=== PATIENT | male | born 1960 | race Caucasian/White ===

== ENCOUNTER 2025-02-23 08:22 | Outpatient (RCR) | payer MEDICARE, OTHER, SELFPAY ==
[2025-02-23 09:03] VITALS: BP 161/89; PULSE 71; RESP 18
--- NOTE | 2025-02-23 11:59 | HP.PCM_ITS ---
History of Present Illness Date of Service: 02/23/25 Chief Complaint: Follow-up of sacral wound from necrotizing fasciitis. History of Wound: This is a 65-year-old diabetic white male who apparently became extremely ill in October and his took him to the emergency room and he was diagnosed with necrotizing fasciitis of his rectal area. A large portion of the 4 inches deep and 2 to 3 inches wide was excised and everything is healed but on the outside there is still this nonhealing area. Very close to his rectum that is still open depth is very shallow but it is very still open. Patient is not a good diabetic and is not well-controlled we did discuss that that that is part of the problem he has to heal and he needs to get his sugars under control. He does have home health and they are doing wet-to-dry with Daktravis's along with his she is helping a lot and doing the wound care and pr zahira much have closed it down except for this 1 area. He is on aspirin a day. We will obtain cultures today and start wound care. [facility] Home Medications ?Medication ?Instructions ?Recorded ?Last Taken ?Type atorvastatin 40 mg tablet 40 mg PO DAILY 02/23/25 Unkn own History gabapentin 600 mg tablet 600 mg PO TID 02/23/25 Unkno wn History glipizide 5 mg tablet, extended 5 mg PO DAILY 02/23/25 Unknown History release 24 hr insulin glargine 100 unit/mL (3 unit subcut 02/23/25 U nknown History mL) subcutaneous pen (Lantus Solostar U-100 Insulin) metoprolol succinate 50 mg 50 mg PO DAILY 02/23/25 Unk nown History tablet,extended release 24 hr nitrofurantoin 1 cap PO BID 02/23/25 Unknow n History monohydrate/macrocrystals 100 mg capsule omeprazole 20 mg capsule,delayed 20 mg PO BID 02/23/25 Unknown History release terbinafine HCl 250 mg tablet 250 mg PO DAILY 02/23/25 Unknown History triamcinolone acetonide 0.1 % topical BID 02/23/25 Unk nown History topical ointment zolpidem 10 mg tablet 10 mg PO QHS 02/23/25 Unknow n History ROS Constitutional Constitutional: Reports systems reviewed and no addt'l complaints, except as documented Eyes Eyes: Reports systems reviewed and no addt'l complaints, except as documented ENT HEENT: Reports systems reviewed and no addt'l complaints, except as documented Cardiovascular Cardiovascular: Reports systems reviewed and no addt'l complaints, except as documented Respiratory/Chest Respiratory/Chest: Reports systems reviewed and no addt'l complaints, except as documented Gastrointestinal Gastrointestinal: Reports systems reviewed and no addt'l complaints, except as documented Genitourinary Genitourinary: Reports systems reviewed and no addt'l complaints, except as documented Musculoskeletal Musculoskeletal: Reports systems reviewed and no addt'l complaints, except as documented Integumentary Integumentary: Reports other Details: Open wound and sacral perirectal area nonhealing shallow depth Neurologic Neurologic: Reports systems reviewed and no addt'l complaints, except as documented Psychiatric Psychiatric: Reports systems reviewed and no addt'l complaints, except as documented Endocrine Endocrinology: Reports systems reviewed and no addt'l complaints, except as documented Hematologic/Lymphatic Hematologic/Lymphatic: Reports systems reviewed and no addt'l complaints, except as documented Allergic/Immunologic Allergic/Immunologic: Reports systems reviewed and no addt'l complaints, except as documented Vital Signs Vital Signs Vital Signs: 02/23/25 09:03 Pulse Rate 71 Respiratory Rate 18 Blood Pressure 161/89 H Blood Pressure Mean 113 Blood Pressure Source Monitor Blood Pressure Position Sitting Blood Pressure Location Right Arm Oxygen Delivery Method Room Air Physical Exam Const oriented x3 General Appearance: cooperative Exam Limitations: no limitations HEENT normocephalic Nose: external nose normal External Ear: external ears normal Eyes General Eye: normal appearance of both eyes Neck full ROM General: normal visual inspection Resp normal respiratory effort Effort and Inspection: able to speak in complete sentences Auscultation: clear to auscultation bilaterally Cardio regular rate and regular rhythm Palpation: normal PMI Rate: regular rate Rhythm: regular rhythm GI Palpation: soft and no hepatosplenomegaly Back/Spine Cervical Spine: cervical ROM normal Thoracic Spine / Upper Back: normal to inspection Lumbar Spine / Lower Back: normal to inspection Extremity normal to inspection Skin Wounds: wounds noted Wound Narrative: Irregular shaped positive depth wound perirectal area of the sacrum Neuro oriented x3 Psych Appearance: grossly normal Speech: normal speech Thought Content: normal thought content Judgement: judgement good Debridement Note Debridement Note Wound debrided: Sacral wound Type of Debridement: Excisional debridement Anesthesia Used: 5% Lidocaine Gel Depth: in the subcutaneous layer Percentage of wound debrided: 100 Instrument Used: 5mm curette Tissue Removed: Fibrin and some devitalized tissue Severity: Fat Layer Exposed Amount of bleeding with debridement: Mild Bleeding Controlled with: Compression and gauze Patient tolerated procedure: Patient tolerated procedure well Post-Debridement Measurements and Additional Note: Post-Debridement Measurements/Treatment - Nurse 1 - General Ulcer Assessment Start: 02/23/25 09:03 Freq: Status: Active Protocol: BRITTANY Activity Type Activity Date Activity User E-sign Co-sign Detail Recorded Client Recorded Date Recorded By Document 02/23/25 09:03 SC [id number] 02/23/25 09:19 SC 02/23/25 09:03 - Today's Visit Information Type of service Initial Visit Arrival Mode Ambulatory Accompanied by Safety Precautions Fall Prevention Vital Signs Pulse Rate (60-100) 71 Pulse Location Monitor Respiratory Rate (12-18) 18 Respiratory rate source Observation Oxygen Delivery Method Room Air Blood Pressure (90/60-120/80) 161/89 H Blood Pressure Mean 113 Source Monitor Position Sitting Blood Pressure Location Right Arm History Since Last Visit- (Skip if this is Patient's initial visit) Has dressing in place as prescribed Yes Has compression in place as prescribed Yes Has offloadiing in place as prescribed Yes Experienced any changes in pain level or Yes management Left Footwear Regular Shoe Right Footwear Regular Shoe Pain Scale: 0-10 Numeric Is Patient Pain Free? Yes Salvatore Nurse 1 - General Ulcer Measurement Start: 02/23/25 09:03 Freq: Status: Active Protocol: Activity Type Activity Date Activity User E-sign Co-sign Detail Recorded Client Recorded Date Recorded By Document 02/23/25 09:03 SC [id number] 02/23/25 09:19 SC 02/23/25 09:03 Wound Center Nurse 1 #1 Sacrum Cluster -Current Size (cm) - Length 6 -Current Size (cm) - Width 1 -Current Size (cm) - Depth 0.1 -Total Square Cm 6 -Date of Last Picture (Recall this 02/23/25 field) -Photo Taken Yes -Tunneling No -Undermining/Tunneling No -Circular Undermining No -Exudate Amt Medium -Exudate Type Sanguineous -Wound Margin Flat & Intact -Granulation Amt Large (67-100%) -Granulation Quality Pale,Jagual,Red -Necrosis Amt None Present (0 %) -Texture (Casandra-wound Skin Appearance) Assessed -Moisture (Casandra-wound Skin Appearance) Assessed, Maceration -Color (Casandra-wound Skin Appearance) Assessed, Erythema -Temperature (Casandra-wound Skin No Abnormality Appearance) (Pt Warm) -Tenderness on Palpation (Casandra-wound No Skin Appearance) -Ulcer Cleansing Soap and Water -Foul Odor after Cleansing No -Anesthetic Used 5% Lidocaine Gel Lower Limb Edema Present NA - Nurse 2 - General Ulcer CM Notes Start: 02/23/25 09:03 Freq: Status: Active Protocol: Activity Type Activity Date Activity User E-sign Co-sign Detail Recorded Client Recorded Date Recorded By Document 02/23/25 09:29 [facility] [id number] 02/23/25 09:40 [facility] 02/23/25 09:29 Wound Center Nurse 2 #1 Sacrum Cluster -Time 09:30 -Correct Patient Yes -Correct Side, Site, Position Yes -Correct Procedure Yes -Procedure Performed Yes -Type of Procedure Debridement -Clinical Debridement Subcutaneous -Tissue Removed Subcutaneous -Post Debridement (cm) - Length 5 -Post Debridement (cm) - Width 3 -Post Debridement (cm) - Depth 0.3 -Total Square (Post) (cm) 15 -Area of Debridement (cm) - Length 5 -Area of Debridement (cm) - Width 3 -Total Square (Area) (cm) 15 -Tunneling No -Undermining/Tunneling No -Circular Undermining No -Wound/Ulcer Outcome Not Healed -Ulcer Cleansing Rinsed/ Irrigated with Saline -Foul Odor after Cleansing No -Bioengineered Tissue No -Bleeding Controlled with Pressure -Treatment Response Procedure Tolerated Well -Debridement - Subq, 1st 20sq cm Yes Pain Scale: 0-10 Numeric Is Patient Pain Free? Yes - Nurse 3 - General Ulcer D/C NN Start: 02/23/25 09:03 Freq: Status: Active Protocol: Activity Type Activity Date Activity User E-sign Co-sign Detail Recorded Client Recorded Date Recorded By Document 02/23/25 10:00 SC [id number] 02/23/25 10:03 SC 02/23/25 10:00 Wound Care Center Nurse 3 #1 Sacrum Cluster -Ulcer Cleansing Soap and Water -Foul Odor after Cleansing No -Negative Pressure Wound Therapy N/A -Primary Dressing Applied Fibracol Plus 4x4 -Other Dressing gauze, abd pad -Primary Dressing Covered/Secured with Dry Gauze, Secured with Tape -Fibracol Plus 4x4 1 -Wound Comment(s) pt has dakins at home. Pain Scale: 0-10 Numeric Is Patient Pain Free? Yes Assessment/Plan Assessment/Plan (1) Hyperglycemia due to type 2 diabetes mellitus: CODE(S): E11.65 - Type 2 diabetes mellitus with hyperglycemia QUALIFIERS: Diabetes mellitus surgical tech insulin use: with surgical tech use Qualified Code(s): E11.65 - Type 2 diabetes mellitus with hyperglycemia; Z79.4 - electric motor tester (current) use of insulin (2) Nonhealing nonsurgical wound with fat layer exposed: CODE(S): T14.8XXA - Other injury of unspecified body region, initial encounter PLAN: Wash buttocks area with Hibiclens or antibacterial soap and water and apply Fibracol soaked in Dakin's applied to open area and cover with moistened gauze and ABD twice daily. Cultures of wound taken we will call with results. Patient needs to offload meaning he can quit sitting on his buttocks and lay straight out on the couch or lay out in his bed either way cannot sit for more than 45 minutes a day at 15-minute increments. Increase his protein to 60 g/day Follow-up in 1 week
--- NOTE | 2025-02-24 10:53 | WC ---
PHOTO 02/23/25 SACRUM
--- NOTE | 2025-02-25 14:12 | WC ---
called pt to inform him that Ellen was sending in a antibiotic script of Cipro - pt requesting [facility] [place]. Medication was called Cipro 500mg 1tab po BID for 14days. no refills
--- NOTE | 2025-02-28 14:40 | WC ---
Received and order for Metronidazole for this patient by Ellen Terrell NP. Called and spoke to Halley regarding the updated order. Confirmed pharmacy at [facility] in [place] and updated his allergy list on [facility]. Halley was concerned that he could get C-Diff because he had it in the past. I reassured her that she or Calvin will need to stay in contact with us on any symptoms that might persist with C-Diff like diarrhea, stomach cramping/upset of pains in stomach, lack of appetite, fever etc. Patient is scheduled to see Ellen this 03/02/25 at 0845. She verbalized understanding.
== END 2025-02-28 23:59 | disposition home or self-care (01) ==
LOC: WC 08:22
PROVIDERS: PCP Family Medicine; Referring Provider Family Medicine; Visit Provider Nurse Practitioner
DX: L98.412 Non-pressure chronic ulcer of buttock with fat layer exposed (principal); E11.65 Type 2 diabetes mellitus with hyperglycemia; Z79.4 Long term (current) use of insulin; S31.000A Unspecified open wound of lower back and pelvis without penetration into retroperitoneum, initial encounter; X58.XXXA Exposure to other specified factors, initial encounter; Z79.84 Long term (current) use of oral hypoglycemic drugs; Z79.899 Other long term (current) drug therapy; Z87.39 Personal history of other diseases of the musculoskeletal system and connective tissue
CPT/HCPCS: 11042; 87070; 87075; 87077; 87186; 87205; 99203; G0463

== ENCOUNTER 2025-03-30 09:30 | Outpatient (RCR) | payer MEDICARE, OTHER, SELFPAY ==
[2025-03-02 08:47] VITALS: BP 161/76; PULSE 62; RESP 18; TEMP 35.8
--- NOTE | 2025-03-02 10:28 | PN.PCM_ITS ---
History of Present Illness Date of Service: 03/02/25 Chief Complaint: Follow-up of sacral wound from necrotizing fasciitis. History of Wound: This is a 65-year-old diabetic white male who apparently became extremely ill in October and his took him to the emergency room and he was diagnosed with necrotizing fasciitis of his rectal area. A large portion of the 4 inches deep and 2 to 3 inches wide was excised and everything is healed but on the outside there is still this nonhealing area. Very close to his rectum that is still open depth is very shallow but it is very still open. Patient is not a good diabetic and is not well-controlled we did discuss that that that is part of the problem he has to heal and he needs to get his sugars under control. He does have home health and they are doing wet-to-dry with Dakin's along with his she is helping a lot and doing the wound care and pr zahira much have closed it down except for this 1 area. He is on aspirin a day. We will obtain cultures today and start wound care. Progress of Wound: Cultures grew aerobic and anaerobic bugs so patient was started on ciprofloxacin and metronidazole which she just started yesterday. But his 's been doing really well with the dressing changes and the sacral wound is filling in nicely it is much smaller than what it was last week using the Fibracol with Dakin soaked and an ABD dressing and they are doing the dressings twice a day which seems to be working well for healing also. Subjective Subjective Patient and are very happy with outcomes. Patient states he has been wal johny a lot which is good getting him out of bed and offloading his buttocks. Objective Data Objective Data This has been going on since September so he is tired of the wound care I think he is progressing well I think now that he is on antibiotic proper antibiotics he should heal quicker and hopefully within the next month he will heal. Vital Signs: Vital Signs Temp Pulse Resp BP 96.5 F L 62 18 161/76 H 03/02/25 08:47 03/02/25 08:47 03/02/25 08:47 03/02/25 08:47 Lab / Micro Data Attestation: I reviewed the patient's lab results. Physical Exam Const oriented x3 General Appearance: cooperative Exam Limitations: no limitations HEENT normocephalic Nose: external nose normal External Ear: external ears normal Eyes General Eye: normal appearance of both eyes Neck full ROM General: normal visual inspection Resp normal respiratory effort Effort and Inspection: able to speak in complete sentences Auscultation: clear to auscultation bilaterally Cardio regular rate and regular rhythm Palpation: normal PMI Rate: regular rate Rhythm: regular rhythm GI Palpation: soft and no hepatosplenomegaly Back/Spine Cervical Spine: cervical ROM normal Thoracic Spine / Upper Back: normal to inspection Lumbar Spine / Lower Back: normal to inspection Extremity normal to inspection Skin Wounds: wounds noted Wound Narrative: Irregular shaped positive depth wound perirectal area of the sacrum Neuro oriented x3 Psych Appearance: grossly normal Speech: normal speech Thought Content: normal thought content Judgement: judgement good Debridement Note Debridement Note Wound debrided: Sacral wound Type of Debridement: Excisional debridement Anesthesia Used: 5% Lidocaine Gel Depth: in the subcutaneous layer Percentage of wound debrided: 100 Instrument Used: 5mm curette Tissue Removed: Fibrin Severity: Fat Layer Exposed Amount of bleeding with debridement: Mild Bleeding Controlled with: Compression and gauze Patient tolerated procedure: Patient tolerated procedure well Post-Debridement Measurements and Additional Note: Post-Debridement Measurements/Treatment - Nurse 1 - General Ulcer Assessment Start: 03/02/25 08:47 Freq: Status: Active Protocol: BRITTANY Activity Type Activity Date Activity User E-sign Co-sign Detail Recorded Client Recorded Date Recorded By Document 03/02/25 08:47 HILTON [id number] 03/02/25 08:49 RB 03/02/25 08:47 - Today's Visit Information Type of service Follow-up Visit (Physician/ARCHITECT MANAGER ) Arrival Mode Ambulatory, Walker Transfer Assistance None Patient Identification Verified (Name & Yes ) Patient Requires Transmission-Based No Precautions Vital Signs Temperature (97.8 F-99.1 F) 96.5 F L Temperature Source Temporal Pulse Rate (60-100) 62 Pulse Location Monitor Respiratory Rate (12-18) 18 Respiratory rate source Observation Blood Pressure (90/60-120/80) 161/76 H Blood Pressure Mean (mm Hg) 104 Source Monitor Position Semi-Fowlers Blood Pressure Location Left Arm History Since Last Visit- (Skip if this is Patient's initial visit) Have you changed medications since your No last visit? Any new allergies or adverse reactions No Had a fall/change in ADL's that may No increase risk of falls Signs or symptoms of abuse and/or No neglect since last visit Have you been in the hospital since your No last visit? Has dressing in place as prescribed Yes Has compression in place as prescribed N/A Has offloadiing in place as prescribed N/A Experienced any changes in pain level or No management Pain Scale: 0-10 Numeric Is Patient Pain Free? Yes - Nurse 1 - General Ulcer Measurement Start: 03/02/25 08:47 Freq: Status: Active Protocol: Activity Type Activity Date Activity User E-sign Co-sign Detail Recorded Client Recorded Date Recorded By Document 03/02/25 08:47 RB [id number] 03/02/25 08:49 RB 03/02/25 08:47 Wound Center Nurse 1 #1 Sacrum Cluster -Combined with other wound No -Current Size (cm) - Length 1.2 -Current Size (cm) - Width 0.5 -Current Size (cm) - Depth 0.1 -Total Square Cm 0.60 -Photo Taken Yes -Tunneling No -Undermining/Tunneling No -Circular Undermining No -Exudate Amt Medium -Exudate Type Serosanguineous -Wound Margin Distinct, Outline Attached -Granulation Amt Medium (34-66%) -Granulation Quality [place] -Slough/Fibrin Yes -Necrosis Amt Medium (34-66%) -Necrotic Tissue Type Adherent Slough -Structure Exposed N/A -Texture (Casandra-wound Skin Appearance) Assessed, Scarring -Moisture (Casandra-wound Skin Appearance) Assessed -Color (Casandra-wound Skin Appearance) Assessed -Temperature (Casandra-wound Skin No Abnormality Appearance) (Pt Warm) -Tenderness on Palpation (Casandra-wound No Skin Appearance) -Ulcer Cleansing Wound Cleanser -Foul Odor after Cleansing No -Anesthetic Used 5% Lidocaine Gel - Nurse 2 - General Ulcer CM Notes Start: 03/02/25 08:47 Freq: Status: Active Protocol: Activity Type Activity Date Activity User E-sign Co-sign Detail Recorded Client Recorded Date Recorded By Document 03/02/25 08:59 [facility] [id number] 03/02/25 09:03 [facility] 03/02/25 08:59 Wound Center Nurse 2 -Time 08:59 -Correct Patient Yes -Correct Side, Site, Position Yes -Correct Procedure Yes -Procedure Performed Yes -Type of Procedure Debridement -Clinical Debridement Subcutaneous -Tissue Removed Subcutaneous -Post Debridement (cm) - Length 1.5 -Post Debridement (cm) - Width 0.6 -Post Debridement (cm) - Depth 0.2 -Total Square (Post) (cm) 0.90 -Area of Debridement (cm) - Length 1.5 -Area of Debridement (cm) - Width 0.6 -Total Square (Area) (cm) 0.90 -Tunneling No -Undermining/Tunneling No -Circular Undermining No -Wound/Ulcer Outcome Not Healed -Ulcer Cleansing Rinsed/ Irrigated with Saline -Foul Odor after Cleansing No -Bioengineered Tissue No -Bleeding Controlled with Pressure -Treatment Response Procedure Tolerated Well -Debridement - Subq, 1st 20sq cm Yes Pain Scale: 0-10 Numeric Is Patient Pain Free? Yes - Nurse 3 - General Ulcer D/C NN Start: 03/02/25 08:47 Freq: Status: Active Protocol: Activity Type Activity Date Activity User E-sign Co-sign Detail Recorded Client Recorded Date Recorded By Document 03/02/25 09:13 DL [id number] 03/02/25 09:14 DL 03/02/25 09:13 Wound Care Center Nurse 3 #1 Sacrum Cluster -Ulcer Cleansing Rinsed/ Irrigated with Saline -Foul Odor after Cleansing No -Primary Dressing Applied Fibracol Plus 4x4 -Other Dressing dakins -Primary Dressing Covered/Secured with Dry Gauze, Secured with Tape -Other Covering ABD -Fibracol Plus 4x4 1 Treatment Response Procedure Tolerated Well Pain Scale: 0-10 Numeric Is Patient Pain Free? Yes - Visit Discharge Discharge Condition Stable Ambulatory Status Ambulatory Transportation Private Auto Assessment/Plan Assessment/Plan (1) Hyperglycemia due to type 2 diabetes mellitus: CODE(S): E11.65 - Type 2 diabetes mellitus with hyperglycemia QUALIFIERS: Diabetes mellitus parts counterman insulin use: with parts counterman use Qualified Code(s): E11.65 - Type 2 diabetes mellitus with hyperglycemia; Z79.4 - terminal carman (current) use of insulin (2) Nonhealing nonsurgical wound with fat layer exposed: CODE(S): T14.8XXA - Other injury of unspecified body region, initial encounter PLAN: Wash buttocks area with Hibiclens or antibacterial soap and water and apply Fibracol soaked in Dakin's applied to open area and cover with moistened gauze and ABD twice daily. Positive cultures patient was started on metronidazole 250 mg 3 times a day for 14 days and also ciprofloxacin 500 mg twice a day for 14 days patient is tolerating well. Patient needs to offload meaning he can quit sitting on his buttocks and lay straight out on the couch or lay out in his bed either way cannot sit for more than 45 minutes a day at 15-minute increments. Increase his protein to 60 g/day Follow-up in 1 week
--- NOTE | 2025-03-02 15:31 | WC ---
PHOTO 03/02/25
--- NOTE | 2025-03-07 09:10 | WC ---
PHOTO 03/02/25
[2025-03-09 08:36] VITALS: BP 152/109; RESP 18; TEMP 36.1
--- NOTE | 2025-03-09 12:37 | PN.PCM_ITS ---
History of Present Illness Date of Service: 03/09/25 Chief Complaint: Follow-up of sacral wound from necrotizing fasciitis. History of Wound: This is a 65-year-old diabetic white male who apparently became extremely ill in October and his took him to the emergency room and he was diagnosed with necrotizing fasciitis of his rectal area. A large portion of the 4 inches deep and 2 to 3 inches wide was excised and everything is healed but on the outside there is still this nonhealing area. Very close to his rectum that is still open depth is very shallow but it is very still open. Patient is not a good diabetic and is not well-controlled we did discuss that that that is part of the problem he has to heal and he needs to get his sugars under control. He does have home health and they are doing wet-to-dry with Dakin's along with his she is helping a lot and doing the wound care and pr zahira much have closed it down except for this 1 area. He is on aspirin a day. We will obtain cultures today and start wound care. Progress of Wound: The sacral wound is almost healed very small and superficial he still finishing up his 2 antibiotic therapy. They proceeded then to ask us to look at his left heel that has a huge fissure and it and right great toe pad side has an open area where he is taken the top layer skin and now it is just slough on top hard and slough. After debriding and we did another culture on his heel see make sure that he is not growing anything. He has a tendency to wear no socks or shoes he is diabetic and has peripheral neuropathy. So we are going to have him start wearing suit shoes and socks and we will do the dressing changes of Fibracol moistened with the Dakin's and then cover that with gauze and and Fredi daily. He can do that to both areas. Subjective Subjective Patient is very happy with the results of the sacrum and his is very happy about looking at his feet. Objective Data Objective Data The bottoms of his feet are quite hardened and dirty and so where the wounds are hardened it took a lot to get to pare down the skin I had to use a 15 blade just to get through the callus and then used a regular curette to get down into the wounds. Both have positive depth and are both kind of large possible infection in both of them were going to culture them and find out in the meantime they can start doing the dressing changes and use amLactin cream to all the hardened areas other than where the dressings are. Patient continues to offload on his s acrum so it is healing probably another week or so. just informed us that she is having gallbladder surgery next week and she is his seal mixer. Vital Signs: Vital Signs Temp Pulse Resp BP O2 Del Method 96.9 F L 62 18 152/109 H Room Air 03/09/25 08:36 03/02/25 08:47 03/09/25 08:36 03/09/25 08:36 03/09/25 08:36 Oxygen Delivery Method Room Air Physical Exam Const oriented x3 General Appearance: cooperative Exam Limitations: no limitations HEENT normocephalic Nose: external nose normal External Ear: external ears normal Eyes General Eye: normal appearance of both eyes Neck full ROM General: normal visual inspection Resp normal respiratory effort Effort and Inspection: able to speak in complete sentences Auscultation: clear to auscultation bilaterally Cardio regular rate and regular rhythm Palpation: normal PMI Rate: regular rate Rhythm: regular rhythm GI Palpation: soft and no hepatosplenomegaly Back/Spine Cervical Spine: cervical ROM normal Thoracic Spine / Upper Back: normal to inspection Lumbar Spine / Lower Back: normal to inspection Extremity General Extremity: normal exam except as noted and other findings Other Details: Open fissure on the left heel and right great toe pad is open wound Skin Wounds: wounds noted Wound Narrative: Irregular shaped positive depth wound perirectal area of the sacrum Neuro oriented x3 Psych Appearance: grossly normal Speech: normal speech Thought Content: normal thought content Judgement: judgement good Debridement Note Debridement Note Wound debrided: Sacral wound Type of Debridement: Excisional debridement Anesthesia Used: 5% Lidocaine Gel Depth: in the subcutaneous layer Percentage of wound debrided: 100 Instrument Used: 5mm curette Tissue Removed: Fibrin Severity: Fat Layer Exposed Amount of bleeding with debridement: Mild Bleeding Controlled with: Compression and gauze Patient tolerated procedure: Patient tolerated procedure well Post-Debridement Measurements and Additional Note: Post-Debridement Measurements/Treatment TIESHA - Nurse 1 - General Ulcer Assessment Start: 03/02/25 08:47 Freq: Status: Active Protocol: BRITTANY Activity Type Activity Date Activity User E-sign Co-sign Detail Recorded Client Recorded Date Recorded By Document 03/02/25 08:47 RB [id number] 03/02/25 08:49 RB Document 03/09/25 08:36 KW [id number] 03/09/25 08:43 KW 03/02/25 03/09/25 08:47 08:36 - Today's Visit Information Type of service Follow-up Visit Follow-up Visit (Physician/DOPE MAINTENANCE WORKER (Physician/DOPE MAINTENANCE WORKER ) ) Arrival Mode Ambulatory, Ambulatory Walker Transfer Assistance None Accompanied by Patient Identification Verified (Name & Yes Yes ) Patient Requires Transmission-Based No Precautions Vital Signs Temperature (97.8 F-99.1 F) 96.5 F L 96.9 F L Temperature Source Temporal Temporal Pulse Rate (60-100) 62 Pulse Location Monitor Respiratory Rate (12-18) 18 18 Respiratory rate source Observation Observation Oxygen Delivery Method Room Air Blood Pressure (90/60-120/80) 161/76 H 152/109 H Blood Pressure Mean (mm Hg) 104 123 Source Monitor Monitor Position Semi-Fowlers Sitting Blood Pressure Location Left Arm Right Arm History Since Last Visit- (Skip if this is Patient's initial visit) Have you changed medications since your No No last visit? Any new allergies or adverse reactions No No Had a fall/change in ADL's that may No No increase risk of falls Signs or symptoms of abuse and/or No No neglect since last visit Have you been in the hospital since your No No last visit? Has dressing in place as prescribed Yes Yes Has compression in place as prescribed N/A N/A Has offloadiing in place as prescribed N/A N/A Experienced any changes in pain level or No No management Left Footwear Regular Shoe Right Footwear Regular Shoe Pain Scale: 0-10 Numeric Is Patient Pain Free? Yes Yes - Nurse 1 - General Ulcer Measurement Start: 03/02/25 08:47 Freq: Status: Active Protocol: Activity Type Activity Date Activity User E-sign Co-sign Detail Recorded Client Recorded Date Recorded By Document 03/02/25 08:47 RB [id number] 03/02/25 08:49 RB Document 03/09/25 08:36 KW [id number] 03/09/25 08:43 03/02/25 03/09/25 08:47 08:36 Wound Center Nurse 1 #1 Sacrum Cluster -Combined with other wound No -Current Size (cm) - Length 1.2 1.1 -Current Size (cm) - Width 0.5 0.2 -Current Size (cm) - Depth 0.1 0.1 -Total Square Cm 0.60 0.22 -Date of Last Picture (Recall this 03/09/25 field) -Photo Taken Yes -Tunneling No -Undermining/Tunneling No -Circular Undermining No -Exudate Amt Medium -Exudate Type Serosanguineous -Wound Margin Distinct, Outline Attached -Granulation Amt Medium (34-66%) Small (1-33%) -Granulation Quality Benkelman Benkelman,Red -Slough/Fibrin Yes -Necrosis Amt Medium (34-66%) -Necrotic Tissue Type Adherent Slough -Structure Exposed N/A -Texture (Casandra-wound Skin Appearance) Assessed, Assessed Scarring -Moisture (Casandra-wound Skin Appearance) Assessed Assessed, Maceration -Color (Casandra-wound Skin Appearance) Assessed Assessed -Temperature (Casandra-wound Skin No Abnormality No Abnormality Appearance) (Pt Warm) (Pt Warm) -Tenderness on Palpation (Csaandra-wound No No Skin Appearance) -Ulcer Cleansing Wound Cleanser Soap and Water -Foul Odor after Cleansing No No -Anesthetic Used 5% Lidocaine 5% Lidocaine Gel Gel WC - Nurse 2 - General Ulcer CM Notes Start: 03/02/25 08:47 Freq: Status: Active Protocol: Activity Type Activity Date Activity User E-sign Co-sign Detail Recorded Client Recorded Date Recorded By Document 03/02/25 08:[address] [facility] [id number] 03/02/25 09:[address] [facility] Document 03/09/25 08:[address] [facility] [id number] 03/09/25 09:[address] [facility] 03/02/25 03/09/25 08:59 08:47 Wound Center Nurse 2 #3- R GR TOE PLANTAR -Time 09:01 -Correct Patient Yes -Correct Side, Site, Position Yes -Correct Procedure Yes -Procedure Performed Yes -Type of Procedure Debridement -Clinical Debridement Subcutaneous -Tissue Removed Subcutaneous -Post Debridement (cm) - Length 1.5 -Post Debridement (cm) - Width 2 -Post Debridement (cm) - Depth 0.2 -Total Square (Post) (cm) 3.0 -Area of Debridement (cm) - Length 1.5 -Area of Debridement (cm) - Width 2 -Total Square (Area) (cm) 3.0 -Tunneling No -Undermining/Tunneling No -Circular Undermining No -Wound/Ulcer Outcome Not Healed -Ulcer Cleansing Rinsed/ Irrigated with Saline -Foul Odor after Cleansing No -Bioengineered Tissue No -Bleeding Controlled with Pressure -Treatment Response Procedure Tolerated Well -Debridement - Subq, 1st 20sq cm No #2- L Heel Fissure -Time 08:51 -Correct Patient Yes -Correct Side, Site, Position Yes -Correct Procedure Yes -Procedure Performed Yes -Type of Procedure Debridement -Clinical Debridement Muscle / Fascia -Tissue Removed Muscle,Fascia -Post Debridement (cm) - Length 3.9 -Post Debridement (cm) - Width 0.2 -Post Debridement (cm) - Depth 0.4 -Total Square (Post) (cm) 0.78 -Area of Debridement (cm) - Length 3.9 -Area of Debridement (cm) - Width 0.2 -Total Square (Area) (cm) 0.78 -Tunneling No -Undermining/Tunneling No -Circular Undermining No -Wound/Ulcer Outcome Not Healed -Ulcer Cleansing Rinsed/ Irrigated with Saline -Foul Odor after Cleansing No -Bioengineered Tissue No -Bleeding Controlled with Pressure -Treatment Response Procedure Tolerated Well -Debridement - Muscle / Fascia, 1st Yes 20sq cm #1 Sacrum Cluster -Time 08:59 08:47 -Correct Patient Yes Yes -Correct Side, Site, Position Yes Yes -Correct Procedure Yes Yes -Procedure Performed Yes Yes -Type of Procedure Debridement Debridement -Clinical Debridement Subcutaneous Subcutaneous -Tissue Removed Subcutaneous Subcutaneous -Post Debridement (cm) - Length 1.5 1 -Post Debridement (cm) - Width 0.6 0.7 -Post Debridement (cm) - Depth 0.2 0.1 -Total Square (Post) (cm) 0.90 0.7 -Area of Debridement (cm) - Length 1.5 1 -Area of Debridement (cm) - Width 0.6 0.7 -Total Square (Area) (cm) 0.90 0.7 -Tunneling No No -Undermining/Tunneling No No -Circular Undermining No No -Wound/Ulcer Outcome Not Healed Not Healed -Ulcer Cleansing Rinsed/ Rinsed/ Irrigated with Irrigated with Saline Saline -Foul Odor after Cleansing No No -Bioengineered Tissue No No -Bleeding Controlled with Pressure Pressure -Treatment Response Procedure Procedure Tolerated Well Tolerated Well -Debridement - Subq, 1st 20sq cm Yes Yes Pain Scale: 0-10 Numeric Is Patient Pain Free? Yes Yes - Nurse 3 - General Ulcer D/C NN Start: 03/02/25 08:47 Freq: Status: Active Protocol: Activity Type Activity Date Activity User E-sign Co-sign Detail Recorded Client Recorded Date Recorded By Document 03/02/25 09:13 DL [id number] 03/02/25 09:14 DL Document 03/09/25 09:21 DL [id number] 03/09/25 09:23 DL 03/02/25 03/09/25 09:13 09:21 Wound Care Center Nurse 3 #3- R GR TOE PLANTAR -Ulcer Cleansing Soap and Water -Foul Odor after Cleansing No -Primary Dressing Applied Fibracol Plus 4x4 -Other Dressing DAKINS MOISTENED FIBRACOL -Primary Dressing Covered/Secured with Dry Gauze & Roll Gauze, Secured with Tape -Fibracol Plus 4x4 1 #2- L Heel Fissure -Ulcer Cleansing Soap and Water -Foul Odor after Cleansing No -Other Dressing dakins/fibracol -Primary Dressing Covered/Secured with Dry Gauze & Roll Gauze, Secured with Tape #1 Sacrum Cluster -Ulcer Cleansing Rinsed/ Soap and Water Irrigated with Saline -Foul Odor after Cleansing No No -Primary Dressing Applied Fibracol Plus 4x4 -Other Dressing dakins dakins/fibracol -Primary Dressing Covered/Secured with Dry Gauze, Dry Gauze & Secured with Roll Gauze, Tape Secured with Tape -Other Covering ABD -Fibracol Plus 4x4 1 Treatment Response Procedure Procedure Tolerated Well Tolerated Well Pain Scale: 0-10 Numeric Is Patient Pain Free? Yes Yes - Visit Discharge Discharge Condition Stable Stable Ambulatory Status Ambulatory Ambulatory Transportation Private Auto Private Auto Facility Type Home Health Orders Sent Yes Additional Wound Wound debrided: Left heel fissure wound Type of Debridement: Excisional debridement Anesthesia Used: 5% Lidocaine Gel Depth: Down to and including healthy tissue and in the subcutaneous layer Percentage of wound debrided: 100 Instrument Used: 5mm curette, 7mm curette and #15 blade Tissue Removed: Callus fibrin devitalized tissue Severity: Fat Layer Exposed Amount of bleeding with debridement: Mild Bleeding Controlled with: Pressure and Compression and gauze Patient tolerated procedure: Patient tolerated procedure well Additional Wound Wound debrided: Right great toe pad Laterality: Right Type of Debridement: Excisional debridement Anesthesia Used: 5% Lidocaine Gel Depth: Down to and including healthy tissue and in the subcutaneous layer Percentage of wound debrided: 100 Instrument Used: 5mm curette Tissue Removed: Slough and fibrin Severity: Fat Layer Exposed Amount of bleeding with debridement: None Bleeding Controlled with: Compression and gauze Patient tolerated procedure: Patient tolerated procedure well Assessment/Plan Assessment/Plan (1) Hyperglycemia due to type 2 diabetes mellitus: CODE(S): E11.65 - Type 2 diabetes mellitus with hyperglycemia QUALIFIERS: Diabetes mellitus buttermaker continuous churn insulin use: with buttermaker continuous churn use Qualified Code(s): E11.65 - Type 2 diabetes mellitus with hyperglycemia; Z79.4 - senior care (current) use of insulin (2) Nonhealing nonsurgical wound with fat layer exposed: CODE(S): T14.8XXA - Other injury of unspecified body region, initial encounter PLAN: Wash buttocks area with Hibiclens or antibacterial soap and water and apply Fibracol soaked in Dakin's applied to open area and cover with moistened gauze and ABD twice daily. Patient needs to offload meaning he can quit sitting on his buttocks and lay straight out on the couch or lay out in his bed either way cannot sit for more than 45 minutes a day at 15-minute increments. Increase his protein to 60 g/day Follow-up in 1 week (3) Non healing left heel wound: CODE(S): S91.302A - Unspecified open wound, left foot, initial encounter PLAN: Wash left heel and right great toe with antibacterial soap and water pat dry apply the Fibracol moistened with Dakin's covered with moistened gauze and dry gauze and tape 2 times a day follow-up in 1 week Cultures obtained of left heel and we will call patient with results (4) Open wound of right great toe: CODE(S): S91.101A - Unspecified open wound of right great toe without damage to nail, initial encounter QUALIFIERS: Encounter type: initial encounter Qualified Code(s): S91.101A - Unspecified open wound of right great toe without damage to nail, initial encounter
--- NOTE | 2025-03-09 13:51 | WC ---
PHOTO 03/09/25 SACRUM
--- NOTE | 2025-03-09 13:53 | WC ---
PHOTO 03/09/25 SACRUM
--- NOTE | 2025-03-14 15:46 | WC ---
tried calling pt to inform him of script being sent in for positive cultures. unable to leave a VM. Linezolid 600mg was called in to [facility].
[2025-03-16 09:24] VITALS: BP 130/81; PULSE 68; RESP 15; TEMP 36.2
--- NOTE | 2025-03-16 10:36 | PN.PCM_ITS ---
History of Present Illness Date of Service: 03/16/25 Chief Complaint: Follow-up of sacral wound from necrotizing fasciitis. History of Wound: This is a 65-year-old diabetic white male who apparently became extremely ill in October and his took him to the emergency room and he was diagnosed with necrotizing fasciitis of his rectal area. A large portion of the 4 inches deep and 2 to 3 inches wide was excised and everything is healed but on the outside there is still this nonhealing area. Very close to his rectum that is still open depth is very shallow but it is very still open. Patient is not a good diabetic and is not well-controlled we did discuss that that that is part of the problem he has to heal and he needs to get his sugars under control. He does have home health and they are doing wet-to-dry with Dakin's along with his she is helping a lot and doing the wound care and pr zahira much have closed it down except for this 1 area. He is on aspirin a day. We will obtain cultures today and start wound care. Progress of Wound: The sacral wound is slightly bigger this week no more depth but not as good as it has been in the past. They proceeded then to ask us to look at his left heel that has a huge fissure and it and right great toe pad side has an open area where he is taken the top layer skin and now it is just slough on top hard and slough. After debriding and we did another culture on his heel that was positive for like 3 bacteria's that he will start Lenzoid later on for that. He has a tendency to wear no socks or shoes he is diabetic and has peripheral neuropathy. So we are going to have him start wearing socks and shoes . Will do the dressing changes of Fibracol moistened with the Dakin's and then cover that with gauze and and Fredi daily. He can do that to both areas. 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 Objective Data Objective Data The heel even though its got bacteria and it healed the majority of it it still has a slit still open still debriding a lot of callus off the edge of that and the right great toe pad still has a lot of devitalized tissue and a lot of macerated tissue around the perimeter debrided it really well and he is to continue with the Fibracol soaked in Dakin's and then wrapped with gauze and dressing. They will start the antibiotic today. Vital Signs: Vital Signs Temp Pulse Resp BP O2 Del Method 97.1 F L 68 15 130/81 H Room Air 03/16/25 09:24 03/16/25 09:24 03/16/25 09:24 03/16/25 09:24 03/09/25 08:36 Oxygen Delivery Method Room Air Lab / Micro Data Micro: Microbiology 03/09/25 09:00 Wound - Heel, Left Gram Stain - Final 03/09/25 09:00 Wound - Heel, Left Wound Culture - Final Staphylococcus pseudintermediu Staphylococcus haemolyticus Enterococcus faecalis 03/09/25 09:00 Wound - Heel, Left Anaerobic Culture - Final No anaerobic bacteria isolated. Physical Exam Const oriented x3 General Appearance: cooperative Exam Limitations: no limitations HEENT normocephalic Nose: external nose normal External Ear: external ears normal Eyes General Eye: normal appearance of both eyes Neck full ROM General: normal visual inspection Resp normal respiratory effort Effort and Inspection: able to speak in complete sentences Auscultation: clear to auscultation bilaterally Cardio regular rate and regular rhythm Palpation: normal PMI Rate: regular rate Rhythm: regular rhythm GI Palpation: soft and no hepatosplenomegaly Back/Spine Cervical Spine: cervical ROM normal Thoracic Spine / Upper Back: normal to inspection Lumbar Spine / Lower Back: normal to inspection Extremity General Extremity: normal exam except as noted and other findings Other Details: Open fissure on the left heel and right great toe pad is open wound Skin Wounds: wounds noted Wound Narrative: Irregular shaped positive depth wound perirectal area of the sacrum Neuro oriented x3 Psych Appearance: grossly normal Speech: normal speech Thought Content: normal thought content Judgement: judgement good Debridement Note Debridement Note Wound debrided: Sacral wound Type of Debridement: Excisional debridement Anesthesia Used: 5% Lidocaine Gel Depth: in the subcutaneous layer Percentage of wound debrided: 100 Instrument Used: 5mm curette Tissue Removed: Fibrin Severity: Fat Layer Exposed Amount of bleeding with debridement: Mild Bleeding Controlled with: Compression and gauze Patient tolerated procedure: Patient tolerated procedure well Post-Debridement Measurements and Additional Note: Post-Debridement Measurements/Treatment WC - Nurse 1 - General Ulcer Assessment Start: 03/02/25 08:47 Freq: Status: Active Protocol: [email or web address].[email or web address] Activity Type Activity Date Activity User E-sign Co-sign Detail Recorded Client Recorded Date Recorded By Document 03/02/25 08:47 RB [id number] 03/02/25 08:49 RB Document 03/09/25 08:36 KW [id number] 03/09/25 08:43 KW Document 03/16/25 09:24 ML [id number] 03/16/25 09:32 ML 03/02/25 03/09/25 03/16/25 08:47 08:36 09:24 - Today's Visit Information Type of service Follow-up Visit Follow-up Visit Follow-up Visit (Physician/DRAW HAND (Physician/DRAW HAND (Physician/DRAW HAND ) ) ) Arrival Mode Ambulatory, Ambulatory Ambulatory Walker Transfer Assistance None None Accompanied by Patient Identification Verified (Name & Yes Yes Yes ) Patient Requires Transmission-Based No No Precautions Vital Signs Temperature (97.8 F-99.1 F) 96.5 F L 96.9 F L 97.1 F L Temperature Source Temporal Temporal Temporal Pulse Rate (60-100) 62 68 Pulse Location Monitor Monitor Respiratory Rate (12-18) 18 18 15 Respiratory rate source Observation Observation Observation Oxygen Delivery Method Room Air Blood Pressure (90/60-120/80) 161/76 H 152/109 H 130/81 H Blood Pressure Mean (mm Hg) 104 123 97 Source Monitor Monitor Monitor Position Semi-Fowlers Sitting Sitting Blood Pressure Location Left Arm Right Arm Right Arm History Since Last Visit- (Skip if this is Patient's initial visit) Have you changed medications since your No No No last visit? Any new allergies or adverse reactions No No No Had a fall/change in ADL's that may No No No increase risk of falls Signs or symptoms of abuse and/or No No No neglect since last visit Have you been in the hospital since your No No No last visit? Has dressing in place as prescribed Yes Yes Yes Has compression in place as prescribed N/A N/A No Has offloadiing in place as prescribed N/A N/A No Experienced any changes in pain level or No No No management Left Footwear Regular Shoe Right Footwear Regular Shoe Pain Scale: 0-10 Numeric Is Patient Pain Free? Yes Yes Yes - Nurse 1 - General Ulcer Measurement Start: 03/02/25 08:47 Freq: Status: Active Protocol: Activity Type Activity Date Activity User E-sign Co-sign Detail Recorded Client Recorded Date Recorded By Document 03/02/25 08:47 RB [id number] 03/02/25 08:49 RB Document 03/09/25 08:36 KW [id number] 03/09/25 08:43 KW Document 03/16/25 09:24 ML [id number] 03/16/25 09:32 ML 03/02/25 03/09/25 03/16/25 08:47 08:36 09:24 Wound Center Nurse 1 #3- R GR TOE PLANTAR -Current Size (cm) - Length 1.3 -Current Size (cm) - Width 1 -Current Size (cm) - Depth 0.2 -Total Square Cm 1.3 -Exudate Amt Medium -Exudate Type Serosanguineous -Wound Margin Distinct, Outline Attached -Slough/Fibrin Yes -Necrosis Amt Small (1-33%) -Necrotic Tissue Type Adherent Slough -Texture (Casandra-wound Skin Appearance) Assessed -Moisture (Casandra-wound Skin Appearance) Assessed -Color (Casandra-wound Skin Appearance) Assessed -Temperature (Casandra-wound Skin No Abnormality Appearance) (Pt Warm) -Tenderness on Palpation (Casandra-wound No Skin Appearance) -Ulcer Cleansing Soap and Water -Foul Odor after Cleansing No -Anesthetic Used 5% Lidocaine Gel #2- L Heel Fissure -Current Size (cm) - Length 0.1 -Current Size (cm) - Width 0.1 -Current Size (cm) - Depth 0.1 -Total Square Cm 0.01 -Slough/Fibrin No -Necrosis Amt None Present (0 %) -Texture (Casandra-wound Skin Appearance) Assessed -Moisture (Casandra-wound Skin Appearance) Assessed -Color (Casandra-wound Skin Appearance) Assessed -Temperature (Casandra-wound Skin No Abnormality Appearance) (Pt Warm) -Tenderness on Palpation (Casandra-wound No Skin Appearance) -Ulcer Cleansing Soap and Water -Foul Odor after Cleansing No -Anesthetic Used 4% Lidocaine Solution #1 Sacrum Cluster -Combined with other wound No -Current Size (cm) - Length 1.2 1.1 2 -Current Size (cm) - Width 0.5 0.2 0.3 -Current Size (cm) - Depth 0.1 0.1 0.1 -Total Square Cm 0.60 0.22 0.6 -Date of Last Picture (Recall this 03/09/25 field) -Photo Taken Yes -Tunneling No -Undermining/Tunneling No -Circular Undermining No -Exudate Amt Medium Small -Exudate Type Serosanguineous Serosanguineous -Wound Margin Distinct, Distinct, Outline Outline Attached Attached -Granulation Amt Medium (34-66%) Small (1-33%) None Present (0 %) -Granulation Quality Thurman Thurman,Red -Slough/Fibrin Yes Yes -Necrosis Amt Medium (34-66%) Small (1-33%) -Necrotic Tissue Type Adherent Slough Adherent Slough -Structure Exposed N/A -Texture (Casandra-wound Skin Appearance) Assessed, Assessed Assessed Scarring -Moisture (Casandra-wound Skin Appearance) Assessed Assessed, Assessed Maceration -Color (Casandra-wound Skin Appearance) Assessed Assessed Assessed -Temperature (Casandra-wound Skin No Abnormality No Abnormality No Abnormality Appearance) (Pt Warm) (Pt Warm) (Pt Warm) -Tenderness on Palpation (Casandra-wound No No No Skin Appearance) -Ulcer Cleansing Wound Cleanser Soap and Water Rinsed/ Irrigated with Saline -Foul Odor after Cleansing No No No -Anesthetic Used 5% Lidocaine 5% Lidocaine 5% Lidocaine Gel Gel Gel WC - Nurse 2 - General Ulcer CM Notes Start: 03/02/25 08:47 Freq: Status: Active Protocol: Activity Type Activity Date Activity User E-sign Co-sign Detail Recorded Client Recorded Date Recorded By Document 03/02/25 08:59 [facility] [id number] 03/02/25 09:03 [facility] Document 03/09/25 08:47 [facility] [id number] 03/09/25 09:06 [facility] Document 03/16/25 09:49 [facility] [id number] 03/16/25 10:00 [facility] 03/02/25 03/09/25 03/16/25 08:59 08:47 09:49 Wound Center Nurse 2 #3- R GR TOE PLANTAR -Time 09:01 09:54 -Correct Patient Yes Yes -Correct Side, Site, Position Yes Yes -Correct Procedure Yes Yes -Procedure Performed Yes Yes -Type of Procedure Debridement Debridement -Clinical Debridement Subcutaneous Subcutaneous -Tissue Removed Subcutaneous Subcutaneous -Post Debridement (cm) - Length 1.5 1.3 -Post Debridement (cm) - Width 2 1.7 -Post Debridement (cm) - Depth 0.2 0.2 -Total Square (Post) (cm) 3.0 2.21 -Area of Debridement (cm) - Length 1.5 1.3 -Area of Debridement (cm) - Width 2 1.7 -Total Square (Area) (cm) 3.0 2.21 -Tunneling No No -Undermining/Tunneling No No -Circular Undermining No No -Wound/Ulcer Outcome Not Healed Not Healed -Ulcer Cleansing Rinsed/ Rinsed/ Irrigated with Irrigated with Saline Saline -Foul Odor after Cleansing No No -Bioengineered Tissue No No -Bleeding Controlled with Pressure Pressure -Treatment Response Procedure Procedure Tolerated Well Tolerated Well -Debridement - Subq, 1st 20sq cm No Yes #2- L Heel Fissure -Time 08:51 09:51 -Correct Patient Yes Yes -Correct Side, Site, Position Yes Yes -Correct Procedure Yes Yes -Procedure Performed Yes Yes -Type of Procedure Debridement Debridement -Clinical Debridement Muscle / Fascia Subcutaneous -Tissue Removed Muscle,Fascia Subcutaneous -Post Debridement (cm) - Length 3.9 1.5 -Post Debridement (cm) - Width 0.2 0.2 -Post Debridement (cm) - Depth 0.4 0.3 -Total Square (Post) (cm) 0.78 0.30 -Area of Debridement (cm) - Length 3.9 1.5 -Area of Debridement (cm) - Width 0.2 0.2 -Total Square (Area) (cm) 0.78 0.30 -Tunneling No No -Undermining/Tunneling No No -Circular Undermining No No -Wound/Ulcer Outcome Not Healed Not Healed -Ulcer Cleansing Rinsed/ Rinsed/ Irrigated with Irrigated with Saline Saline -Foul Odor after Cleansing No No -Bioengineered Tissue No No -Bleeding Controlled with Pressure Pressure -Treatment Response Procedure Procedure Tolerated Well Tolerated Well -Debridement - Subq, 1st 20sq cm No -Debridement - Muscle / Fascia, 1st Yes 20sq cm #1 Sacrum Cluster -Time 08:59 08:47 09:49 -Correct Patient Yes Yes Yes -Correct Side, Site, Position Yes Yes Yes -Correct Procedure Yes Yes Yes -Procedure Performed Yes Yes Yes -Type of Procedure Debridement Debridement Debridement -Clinical Debridement Subcutaneous Subcutaneous Subcutaneous -Tissue Removed Subcutaneous Subcutaneous Subcutaneous -Post Debridement (cm) - Length 1.5 1 2 -Post Debridement (cm) - Width 0.6 0.7 1.5 -Post Debridement (cm) - Depth 0.2 0.1 0.2 -Total Square (Post) (cm) 0.90 0.7 3.0 -Area of Debridement (cm) - Length 1.5 1 2 -Area of Debridement (cm) - Width 0.6 0.7 1.5 -Total Square (Area) (cm) 0.90 0.7 3.0 -Tunneling No No No -Undermining/Tunneling No No No -Circular Undermining No No No -Wound/Ulcer Outcome Not Healed Not Healed Not Healed -Ulcer Cleansing Rinsed/ Rinsed/ Rinsed/ Irrigated with Irrigated with Irrigated with Saline Saline Saline -Foul Odor after Cleansing No No No -Bioengineered Tissue No No No -Bleeding Controlled with Pressure Pressure Pressure -Treatment Response Procedure Procedure Procedure Tolerated Well Tolerated Well Tolerated Well -Debridement - Subq, 1st 20sq cm Yes Yes No Pain Scale: 0-10 Numeric Is Patient Pain Free? Yes Yes Yes - Nurse 3 - General Ulcer D/C NN Start: 03/02/25 08:47 Freq: Status: Active Protocol: Activity Type Activity Date Activity User E-sign Co-sign Detail Recorded Client Recorded Date Recorded By Document 03/02/25 09:13 DL [id number] 03/02/25 09:14 DL Document 03/09/25 09:21 DL [id number] 03/09/25 09:23 DL Document 03/16/25 10:12 DL [id number] 03/16/25 10:16 DL 03/02/25 03/09/25 03/16/25 09:13 09:21 10:12 Wound Care Center Nurse 3 #3- R GR TOE PLANTAR -Ulcer Cleansing Soap and Water Soap and Water -Foul Odor after Cleansing No No -Primary Dressing Applied Fibracol Plus Fibracol Plus 4x4 4x4,NonAdherent Contact Layer -Other Dressing DAKINS dakins MOISTENED FIBRACOL -Primary Dressing Covered/Secured with Dry Gauze & Dry Gauze, Roll Gauze, Secured with Secured with Tape Tape -Fibracol Plus 4x4 1 1 #2- L Heel Fissure -Ulcer Cleansing Soap and Water Soap and Water -Foul Odor after Cleansing No No -Primary Dressing Applied NonAdherent Contact Layer -Other Dressing dakins/fibracol fibracol/dakins -Primary Dressing Covered/Secured with Dry Gauze & Dry Gauze, Roll Gauze, Secured with Secured with Tape Tape #1 Sacrum Cluster -Ulcer Cleansing Rinsed/ Soap and Water Soap and Water Irrigated with Saline -Foul Odor after Cleansing No No No -Primary Dressing Applied Fibracol Plus 4x4 -Other Dressing dakins dakins/fibracol fibracol/dakins -Primary Dressing Covered/Secured with Dry Gauze, Dry Gauze & Dry Gauze, Secured with Roll Gauze, Secured with Tape Secured with Tape Tape -Other Covering ABD -Fibracol Plus 4x4 1 Treatment Response Procedure Procedure Tolerated Well Tolerated Well Pain Scale: 0-10 Numeric Is Patient Pain Free? Yes Yes Yes WC - Visit Discharge Discharge Condition Stable Stable Stable Ambulatory Status Ambulatory Ambulatory Ambulatory Transportation Private Auto Private Auto Private [facility] Facility Type Home Health Home Health Orders Sent Yes Yes Additional Wound Wound debrided: Left heel fissure wound Type of Debridement: Excisional debridement Anesthesia Used: 5% Lidocaine Gel Depth: Down to and including healthy tissue and in the subcutaneous layer Percentage of wound debrided: 100 Instrument Used: 5mm curette, 7mm curette and #15 blade Tissue Removed: Callus fibrin devitalized tissue Severity: Fat Layer Exposed Amount of bleeding with debridement: Mild Bleeding Controlled with: Pressure and Compression and gauze Patient tolerated procedure: Patient tolerated procedure well Additional Wound Wound debrided: Right great toe pad Laterality: Right Type of Debridement: Excisional debridement Anesthesia Used: 5% Lidocaine Gel Depth: Down to and including healthy tissue and in the subcutaneous layer Percentage of wound debrided: 100 Instrument Used: 5mm curette Tissue Removed: Slough and fibrin Severity: Fat Layer Exposed Amount of bleeding with debridement: None Bleeding Controlled with: Compression and gauze Patient tolerated procedure: Patient tolerated procedure well Assessment/Plan Assessment/Plan (1) Hyperglycemia due to type 2 diabetes mellitus: CODE(S): E11.65 - Type 2 diabetes mellitus with hyperglycemia QUALIFIERS: Diabetes mellitus architectural drafter insulin use: with architectural drafter use Qualified Code(s): E11.65 - Type 2 diabetes mellitus with hyperglycemia; Z79.4 - chili powder mixer (current) use of insulin (2) Nonhealing nonsurgical wound with fat layer exposed: CODE(S): T14.8XXA - Other injury of unspecified body region, initial encounter PLAN: Wash buttocks area with Hibiclens or antibacterial soap and water and apply Fibracol soaked in Dakin's applied to open area and cover with moistened gauze and ABD twice daily. Patient needs to offload meaning he can quit sitting on his buttocks and lay straight out on the couch or lay out in his bed either way cannot sit for more than 45 minutes a day at 15-minute increments. Increase his protein to 60 g/day Follow-up in 1 week (3) Non healing left heel wound: CODE(S): S91.302A - Unspecified open wound, left foot, initial encounter PLAN: Wash left heel and right great toe with antibacterial soap and water pat dry apply the Fibracol moistened with Dakin's covered with moistened gauze and dry gauze and tape 2 times a day follow-up in 1 week Cultures obtained of left heel were positive and patient will be started on li nezolid 600 mg twice daily for 14 days. (4) Open wound of right great toe: CODE(S): S91.101A - Unspecified open wound of right great toe without damage to nail, initial encounter QUALIFIERS: Encounter type: initial encounter Qualified Code(s): S91.101A - Unspecified open wound of right great toe without damage to nail, initial encounter
--- NOTE | 2025-03-16 14:24 | WC ---
PHOTO 03/16/25 SACRAL
--- NOTE | 2025-03-16 14:27 | WC ---
PHOTO 03/16/25 LEFT HEEL
--- NOTE | 2025-03-16 14:32 | WC ---
PHOTO 03/16/25 RIGHT GREAT TOE
[2025-03-23 09:43] VITALS: BP 162/88; PULSE 73; RESP 15; TEMP 36.2
--- NOTE | 2025-03-23 11:01 | PCM.WC.PN ---
History of Present Illness Date of Service: 03/23/25 Chief Complaint: Follow-up of sacral wound from necrotizing fasciitis. History of Wound: This is a 65-year-old diabetic white male who apparently became extremely ill in October and his took him to the emergency room and he was diagnosed with necrotizing fasciitis of his rectal area. A large portion of the 4 inches deep and 2 to 3 inches wide was excised and everything is healed but on the outside there is still this nonhealing area. Very close to his rectum that is still open depth is very shallow but it is very still open. Patient is not a good diabetic and is not well-controlled we did discuss that that that is part of the problem he has to heal and he needs to get his sugars under control. He does have home health and they are doing wet-to-dry with Dakin's along with his she is helping a lot and doing the wound care and pretty much have closed it down except for this 1 area. He is on aspirin a day. We will obtain cultures today and start wound care. Progress of Wound: The sacral wound is almost healed today a small sliver of open area with a lot of macerated tissue we will stop using Adaptic on all of his wounds. His left heel fissure is closed and just needs to be pared down on a regular basis and discussed that with the . It just he gets a lot of callus. The right great toe pad side has an open area with a lot of maceration around it also I think from the Adaptic and that his feet sweat profusely. Continue to debride all of the callus off and debride the wound it is measuring smaller he is doing well with the fibrin call and Dakin soaked dressings to both areas the sacral and to the toe. Patient is finishing up his linezolid for his bacteria in his heel. He is being good about wearing socks and mostly shoes most of the time now rather than walking barefoot around the house. All measurements are smaller in the heel is resolved Subjective Subjective Patient and are very pleased with outcomes Objective Data Objective Data No sign of infection wounds look good healing fast finishing up the linezolid which helped a lot with the sacral wound. Will continue using the soaked Fibracol in Dakin's and dry dressings this time. Vital Signs: Vital Signs Temp Pulse Resp BP O2 Del Method 97.2 F L 73 15 162/88 H Room Air 03/23/25 09:43 03/23/25 09:43 03/23/25 09:43 03/23/25 09:43 03/09/25 08:36 Oxygen Delivery Method Room Air Lab / Micro Data Micro: Microbiology 03/09/25 09:00 Wound - Heel, Left Gram Stain - Final 03/09/25 09:00 Wound - Heel, Left Wound Culture - Final Staphylococcus pseudintermediu Staphylococcus haemolyticus Enterococcus faecalis 03/09/25 09:00 Wound - Heel, Left Anaerobic Culture - Final No anaerobic bacteria isolated. Physical Exam Const oriented x3 General Appearance: cooperative Exam Limitations: no limitations HEENT normocephalic Nose: external nose normal External Ear: external ears normal Eyes General Eye: normal appearance of both eyes Neck full ROM General: normal visual inspection Resp normal respiratory effort Effort and Inspection: able to speak in complete sentences Auscultation: clear to auscultation bilaterally Cardio regular rate and regular rhythm Palpation: normal PMI Rate: regular rate Rhythm: regular rhythm GI Palpation: soft and no hepatosplenomegaly Back/Spine Cervical Spine: cervical ROM normal Thoracic Spine / Upper Back: normal to inspection Lumbar Spine / Lower Back: normal to inspection Extremity General Extremity: normal exam except as noted and other findings Other Details: Open fissure on the left heel and right great toe pad is open wound Skin Wounds: wounds noted Wound Narrative: Irregular shaped positive depth wound perirectal area of the sacrum Neuro oriented x3 Psych Appearance: grossly normal Speech: normal speech Thought Content: normal thought content Judgement: judgement good Debridement Note Debridement Note Wound debrided: Sacral wound Type of Debridement: Excisional debridement Anesthesia Used: 5% Lidocaine Gel Depth: in the subcutaneous layer Percentage of wound debrided: 100 Instrument Used: 5mm curette Tissue Removed: Fibrin Severity: Fat Layer Exposed Amount of bleeding with debridement: Mild Bleeding Controlled with: Compression and gauze Patient tolerated procedure: Patient tolerated procedure well Post-Debridement Measurements and Additional Note: Post-Debridement Measurements/Treatment WC - Nurse 1 - General Ulcer Assessment Start: 03/02/25 08:47 Freq: Status: Active Protocol: BRITTANY Activity Type Activity Date Activity User E-sign Co-sign Detail Recorded Client Recorded Date Recorded By Document 03/02/25 08:47 RB [id number] 03/02/25 08:49 RB Document 03/09/25 08:36 KW [id number] 03/09/25 08:43 KW Document 03/16/25 09:24 ML [id number] 03/16/25 09:32 ML Document 03/23/25 09:43 ML [id number] 03/23/25 09:52 ML 03/02/25 03/09/25 03/16/25 08:47 08:36 09:24 WC - Today's Visit Information Type of service Follow-up Visit Follow-up Visit Follow-up Visit (Physician/SPANISH INTERPRETER (Physician/SPANISH INTERPRETER (Physician/SPANISH INTERPRETER ) ) ) Arrival Mode Ambulatory, Ambulatory Ambulatory Walker Transfer Assistance None None Accompanied by Patient Identification Verified (Name & Yes Yes Yes ) Patient Requires Transmission-Based No No Precautions Vital Signs Temperature (97.8 F-99.1 F) 96.5 F L 96.9 F L 97.1 F L Temperature Source Temporal Temporal Temporal Pulse Rate (60-100) 62 68 Pulse Location Monitor Monitor Respiratory Rate (12-18) 18 18 15 Respiratory rate source Observation Observation Observation Oxygen Delivery Method Room Air Blood Pressure (90/60-120/80) 161/76 H 152/109 H 130/81 H Blood Pressure Mean (mm Hg) 104 123 97 Source Monitor Monitor Monitor Position Semi-Fowlers Sitting Sitting Blood Pressure Location Left Arm Right Arm Right Arm History Since Last Visit- (Skip if this is Patient's initial visit) Have you changed medications since your No No No last visit? Any new allergies or adverse reactions No No No Had a fall/change in ADL's that may No No No increase risk of falls Signs or symptoms of abuse and/or No No No neglect since last visit Have you been in the hospital since your No No No last visit? Has dressing in place as prescribed Yes Yes Yes Has compression in place as prescribed N/A N/A No Has offloadiing in place as prescribed N/A N/A No Experienced any changes in pain level or No No No management Left Footwear Regular Shoe Right Footwear Regular Shoe Pain Scale: 0-10 Numeric Is Patient Pain Free? Yes Yes Yes 03/23/25 09:43 WC - Today's Visit Information Type of service Follow-up Visit (Physician/SPANISH INTERPRETER ) Arrival Mode Ambulatory Transfer Assistance None Accompanied by Patient Identification Verified (Name & Yes ) Patient Requires Transmission-Based No Precautions Vital Signs Temperature (97.8 F-99.1 F) 97.2 F L Temperature Source Temporal Pulse Rate (60-100) 73 Pulse Location Monitor Respiratory Rate (12-18) 15 Respiratory rate source Observation Oxygen Delivery Method Blood Pressure (90/60-120/80) 162/88 H Blood Pressure Mean (mm Hg) 112 Source Monitor Position Sitting Blood Pressure Location Right Arm History Since Last Visit- (Skip if this is Patient's initial visit) Have you changed medications since your No last visit? Any new allergies or adverse reactions No Had a fall/change in ADL's that may No increase risk of falls Signs or symptoms of abuse and/or No neglect since last visit Have you been in the hospital since your last visit? Has dressing in place as prescribed Yes Has compression in place as prescribed N/A Has offloadiing in place as prescribed N/A Experienced any changes in pain level or No management Left Footwear Right Footwear Pain Scale: 0-10 Numeric Is Patient Pain Free? Yes WC - Nurse 1 - General Ulcer Measurement Start: 03/02/25 08:47 Freq: Status: Active Protocol: Activity Type Activity Date Activity User E-sign Co-sign Detail Recorded Client Recorded Date Recorded By Document 03/02/25 08:47 RB [id number] 03/02/25 08:49 RB Document 03/09/25 08:36 KW [id number] 03/09/25 08:43 KW Document 03/16/25 09:24 ML [id number] 03/16/25 09:32 ML Document 03/23/25 09:43 ML [id number] 03/23/25 09:52 ML 03/02/25 03/09/25 03/16/25 08:47 08:36 09:24 Wound Center Nurse 1 #2- L Heel Fissure -Current Size (cm) - Length 0.1 -Current Size (cm) - Width 0.1 -Current Size (cm) - Depth 0.1 -Total Square Cm 0.01 -Exudate Amt -Granulation Amt -Slough/Fibrin No -Necrosis Amt None Present (0 %) -Texture (Casandra-wound Skin Appearance) Assessed -Moisture (Casandra-wound Skin Appearance) Assessed -Color (Casandra-wound Skin Appearance) Assessed -Temperature (Casandra-wound Skin No Abnormality Appearance) (Pt Warm) -Tenderness on Palpation (Casandra-wound No Skin Appearance) -Ulcer Cleansing Soap and Water -Foul Odor after Cleansing No -Anesthetic Used 4% Lidocaine Solution #3- R GR TOE PLANTAR -Current Size (cm) - Length 1.3 -Current Size (cm) - Width 1 -Current Size (cm) - Depth 0.2 -Total Square Cm 1.3 -Exudate Amt Medium -Exudate Type Serosanguineous -Wound Margin Distinct, Outline Attached -Granulation Amt -Slough/Fibrin Yes -Necrosis Amt Small (1-33%) -Necrotic Tissue Type Adherent Slough -Texture (Casandra-wound Skin Appearance) Assessed -Moisture (Casandra-wound Skin Appearance) Assessed -Color (Casandra-wound Skin Appearance) Assessed -Temperature (Casandra-wound Skin No Abnormality Appearance) (Pt Warm) -Tenderness on Palpation (Casandra-wound No Skin Appearance) -Ulcer Cleansing Soap and Water -Foul Odor after Cleansing No -Anesthetic Used 5% Lidocaine Gel #1 Sacrum Cluster -Combined with other wound No -Current Size (cm) - Length 1.2 1.1 2 -Current Size (cm) - Width 0.5 0.2 0.3 -Current Size (cm) - Depth 0.1 0.1 0.1 -Total Square Cm 0.60 0.22 0.6 -Date of Last Picture (Recall this 03/09/25 field) -Photo Taken Yes -Tunneling No -Undermining/Tunneling No -Circular Undermining No -Exudate Amt Medium Small -Exudate Type Serosanguineous Serosanguineous -Wound Margin Distinct, Distinct, Outline Outline Attached Attached -Granulation Amt Medium (34-66%) Small (1-33%) None Present (0 %) -Granulation Quality [place] -Slough/Fibrin Yes Yes -Necrosis Amt Medium (34-66%) Small (1-33%) -Necrotic Tissue Type Adherent Slough Adherent Slough -Structure Exposed N/A -Texture (Casandra-wound Skin Appearance) Assessed, Assessed Assessed Scarring -Moisture (Casandra-wound Skin Appearance) Assessed Assessed, Assessed Maceration -Color (Casandra-wound Skin Appearance) Assessed Assessed Assessed -Temperature (Casandra-wound Skin No Abnormality No Abnormality No Abnormality Appearance) (Pt Warm) (Pt Warm) (Pt Warm) -Tenderness on Palpation (Casandra-wound No No No Skin Appearance) -Ulcer Cleansing Wound Cleanser Soap and Water Rinsed/ Irrigated with Saline -Foul Odor after Cleansing No No No -Anesthetic Used 5% Lidocaine 5% Lidocaine 5% Lidocaine Gel Gel Gel 03/23/25 09:43 Wound Center Nurse 1 #2- L Heel Fissure -Current Size (cm) - Length 0.1 -Current Size (cm) - Width 0.1 -Current Size (cm) - Depth 0.1 -Total Square Cm 0.01 -Exudate Amt None Present -Granulation Amt None Present (0 %) -Slough/Fibrin No -Necrosis Amt None Present (0 %) -Texture (Casandra-wound Skin Appearance) Assessed -Moisture (Casandra-wound Skin Appearance) Assessed,Dry/ Scaly -Color (Casandra-wound Skin Appearance) Assessed -Temperature (Casandra-wound Skin No Abnormality Appearance) (Pt Warm) -Tenderness on Palpation (Casandra-wound No Skin Appearance) -Ulcer Cleansing Rinsed/ Irrigated with Saline -Foul Odor after Cleansing No -Anesthetic Used 5% Lidocaine Gel #3- R GR TOE PLANTAR -Current Size (cm) - Length 1.5 -Current Size (cm) - Width 1.5 -Current Size (cm) - Depth 0.2 -Total Square Cm 2.25 -Exudate Amt Medium -Exudate Type Serosanguineous -Wound Margin Thickened -Granulation Amt Small (1-33%) -Slough/Fibrin Yes -Necrosis Amt Medium (34-66%) -Necrotic Tissue Type Adherent Slough -Texture (Casandra-wound Skin Appearance) Assessed -Moisture (Casandra-wound Skin Appearance) Maceration -Color (Casandra-wound Skin Appearance) Assessed -Temperature (Casandra-wound Skin No Abnormality Appearance) (Pt Warm) -Tenderness on Palpation (Casandra-wound No Skin Appearance) -Ulcer Cleansing Rinsed/ Irrigated with Saline -Foul Odor after Cleansing No -Anesthetic Used 5% Lidocaine Gel #1 Sacrum Cluster -Combined with other wound -Current Size (cm) - Length 0.5 -Current Size (cm) - Width 0.1 -Current Size (cm) - Depth 0.1 -Total Square Cm 0.05 -Date of Last Picture (Recall this field) -Photo Taken -Tunneling -Undermining/Tunneling -Circular Undermining -Exudate Amt Small -Exudate Type Sanguineous -Wound Margin -Granulation Amt -Granulation Quality -Slough/Fibrin Yes -Necrosis Amt Small (1-33%) -Necrotic Tissue Type Adherent Slough -Structure Exposed -Texture (Casandra-wound Skin Appearance) Assessed -Moisture (Casandra-wound Skin Appearance) Assessed -Color (Casandra-wound Skin Appearance) Assessed -Temperature (Casandra-wound Skin No Abnormality Appearance) (Pt Warm) -Tenderness on Palpation (Casandra-wound No Skin Appearance) -Ulcer Cleansing Rinsed/ Irrigated with Saline -Foul Odor after Cleansing No -Anesthetic Used 5% Lidocaine Gel WC - Nurse 2 - General Ulcer CM Notes Start: 03/02/25 08:47 Freq: Status: Active Protocol: Activity Type Activity Date Activity User E-sign Co-sign Detail Recorded Client Recorded Date Recorded By Document 03/02/25 08:59 BMF [id number] 03/02/25 09:03 BMF Document 03/09/25 08:47 BMF [id number] 03/09/25 09:06 BMF Document 03/16/25 09:49 BMF [id number] 03/16/25 10:00 BMF Document 03/23/25 10:26 BMF [id number] 03/23/25 10:35 BMF 03/02/25 03/09/25 03/16/25 08:59 08:47 09:49 Wound Center Nurse 2 #2- L Heel Fissure -Time 08:51 09:51 -Correct Patient Yes Yes -Correct Side, Site, Position Yes Yes -Correct Procedure Yes Yes -Procedure Performed Yes Yes -Type of Procedure Debridement Debridement -Clinical Debridement Muscle / Fascia Subcutaneous -Tissue Removed Muscle,Fascia Subcutaneous -Post Debridement (cm) - Length 3.9 1.5 -Post Debridement (cm) - Width 0.2 0.2 -Post Debridement (cm) - Depth 0.4 0.3 -Total Square (Post) (cm) 0.78 0.30 -Area of Debridement (cm) - Length 3.9 1.5 -Area of Debridement (cm) - Width 0.2 0.2 -Total Square (Area) (cm) 0.78 0.30 -Tunneling No No -Undermining/Tunneling No No -Circular Undermining No No -Wound/Ulcer Outcome Not Healed Not Healed -Ulcer Cleansing Rinsed/ Rinsed/ Irrigated with Irrigated with Saline Saline -Foul Odor after Cleansing No No -Bioengineered Tissue No No -Bleeding Controlled with Pressure Pressure -Treatment Response Procedure Procedure Tolerated Well Tolerated Well -Debridement - Subq, 1st 20sq cm No -Debridement - Muscle / Fascia, 1st Yes 20sq cm #3- R GR TOE PLANTAR -Time 09:01 09:54 -Correct Patient Yes Yes -Correct Side, Site, Position Yes Yes -Correct Procedure Yes Yes -Procedure Performed Yes Yes -Type of Procedure Debridement Debridement -Clinical Debridement Subcutaneous Subcutaneous -Tissue Removed Subcutaneous Subcutaneous -Post Debridement (cm) - Length 1.5 1.3 -Post Debridement (cm) - Width 2 1.7 -Post Debridement (cm) - Depth 0.2 0.2 -Total Square (Post) (cm) 3.0 2.21 -Area of Debridement (cm) - Length 1.5 1.3 -Area of Debridement (cm) - Width 2 1.7 -Total Square (Area) (cm) 3.0 2.21 -Tunneling No No -Undermining/Tunneling No No -Circular Undermining No No -Wound/Ulcer Outcome Not Healed Not Healed -Ulcer Cleansing Rinsed/ Rinsed/ Irrigated with Irrigated with Saline Saline -Foul Odor after Cleansing No No -Bioengineered Tissue No No -Bleeding Controlled with Pressure Pressure -Treatment Response Procedure Procedure Tolerated Well Tolerated Well -Debridement - Subq, 1st 20sq cm No Yes #1 Sacrum Cluster -Time 08:59 08:47 09:49 -Correct Patient Yes Yes Yes -Correct Side, Site, Position Yes Yes Yes -Correct Procedure Yes Yes Yes -Procedure Performed Yes Yes Yes -Type of Procedure Debridement Debridement Debridement -Clinical Debridement Subcutaneous Subcutaneous Subcutaneous -Tissue Removed Subcutaneous Subcutaneous Subcutaneous -Post Debridement (cm) - Length 1.5 1 2 -Post Debridement (cm) - Width 0.6 0.7 1.5 -Post Debridement (cm) - Depth 0.2 0.1 0.2 -Total Square (Post) (cm) 0.90 0.7 3.0 -Area of Debridement (cm) - Length 1.5 1 2 -Area of Debridement (cm) - Width 0.6 0.7 1.5 -Total Square (Area) (cm) 0.90 0.7 3.0 -Tunneling No No No -Undermining/Tunneling No No No -Circular Undermining No No No -Wound/Ulcer Outcome Not Healed Not Healed Not Healed -Ulcer Cleansing Rinsed/ Rinsed/ Rinsed/ Irrigated with Irrigated with Irrigated with Saline Saline Saline -Foul Odor after Cleansing No No No -Bioengineered Tissue No No No -Bleeding Controlled with Pressure Pressure Pressure -Treatment Response Procedure Procedure Procedure Tolerated Well Tolerated Well Tolerated Well -Debridement - Subq, 1st 20sq cm Yes Yes No Pain Scale: 0-10 Numeric Is Patient Pain Free? Yes Yes Yes 03/23/25 10:26 Wound Center Nurse 2 #2- L Heel Fissure -Time 10:27 -Correct Patient -Correct Side, Site, Position -Correct Procedure -Procedure Performed No -Type of Procedure -Clinical Debridement -Tissue Removed -Post Debridement (cm) - Length 0 -Post Debridement (cm) - Width 0 -Post Debridement (cm) - Depth 0 -Total Square (Post) (cm) 0 -Area of Debridement (cm) - Length 0 -Area of Debridement (cm) - Width 0 -Total Square (Area) (cm) 0 -Tunneling -Undermining/Tunneling -Circular Undermining -Wound/Ulcer Outcome Healed- Epithelialized -Ulcer Cleansing -Foul Odor after Cleansing -Bioengineered Tissue -Bleeding Controlled with -Treatment Response -Debridement - Subq, 1st 20sq cm -Debridement - Muscle / Fascia, 1st 20sq cm #3- R GR TOE PLANTAR -Time 10:26 -Correct Patient Yes -Correct Side, Site, Position Yes -Correct Procedure Yes -Procedure Performed Yes -Type of Procedure Debridement -Clinical Debridement Subcutaneous -Tissue Removed Subcutaneous -Post Debridement (cm) - Length 1.3 -Post Debridement (cm) - Width 1.6 -Post Debridement (cm) - Depth 0.2 -Total Square (Post) (cm) 2.08 -Area of Debridement (cm) - Length 1.3 -Area of Debridement (cm) - Width 1.6 -Total Square (Area) (cm) 2.08 -Tunneling No -Undermining/Tunneling No -Circular Undermining No -Wound/Ulcer Outcome Not Healed -Ulcer Cleansing Rinsed/ Irrigated with Saline -Foul Odor after Cleansing No -Bioengineered Tissue No -Bleeding Controlled with Pressure -Treatment Response Procedure Tolerated Well -Debridement - Subq, 1st 20sq cm No #1 Sacrum Cluster -Time 10:26 -Correct Patient Yes -Correct Side, Site, Position Yes -Correct Procedure Yes -Procedure Performed Yes -Type of Procedure Debridement -Clinical Debridement Subcutaneous -Tissue Removed Subcutaneous -Post Debridement (cm) - Length 0.5 -Post Debridement (cm) - Width 0.3 -Post Debridement (cm) - Depth 0.1 -Total Square (Post) (cm) 0.15 -Area of Debridement (cm) - Length 0.5 -Area of Debridement (cm) - Width 0.3 -Total Square (Area) (cm) 0.15 -Tunneling No -Undermining/Tunneling No -Circular Undermining No -Wound/Ulcer Outcome Not Healed -Ulcer Cleansing Rinsed/ Irrigated with Saline -Foul Odor after Cleansing No -Bioengineered Tissue No -Bleeding Controlled with Pressure -Treatment Response Procedure Tolerated Well -Debridement - Subq, 1st 20sq cm Yes Pain Scale: 0-10 Numeric Is Patient Pain Free? Yes WC - Nurse 3 - General Ulcer D/C NN Start: 03/02/25 08:47 Freq: Status: Active Protocol: Activity Type Activity Date Activity User E-sign Co-sign Detail Recorded Client Recorded Date Recorded By Document 03/02/25 09:13 DL [id number] 03/02/25 09:14 DL Document 03/09/25 09:21 DL [id number] 03/09/25 09:23 DL Document 03/16/25 10:12 DL [id number] 03/16/25 10:16 DL Document 03/23/25 10:49 ML [id number] 03/23/25 10:50 ML 03/02/25 03/09/25 03/16/25 09:13 09:21 10:12 Wound Care Center Nurse 3 #2- L Heel Fissure -Ulcer Cleansing Soap and Water Soap and Water -Foul Odor after Cleansing No No -Primary Dressing Applied NonAdherent Contact Layer -Other Dressing dakins/fibracol fibracol/dakins -Primary Dressing Covered/Secured with Dry Gauze & Dry Gauze, Roll Gauze, Secured with Secured with Tape Tape #3- R GR TOE PLANTAR -Ulcer Cleansing Soap and Water Soap and Water -Foul Odor after Cleansing No No -Primary Dressing Applied Fibracol Plus Fibracol Plus 4x4 4x4,NonAdherent Contact Layer -Other Dressing DAKINS dakins MOISTENED FIBRACOL -Primary Dressing Covered/Secured with Dry Gauze & Dry Gauze, Roll Gauze, Secured with Secured with Tape Tape -Fibracol Plus 4x4 1 1 -Hysept #1 Sacrum Cluster -Ulcer Cleansing Rinsed/ Soap and Water Soap and Water Irrigated with Saline -Foul Odor after Cleansing No No No -Primary Dressing Applied Fibracol Plus 4x4 -Other Dressing dakins dakins/fibracol fibracol/dakins -Primary Dressing Covered/Secured with Dry Gauze, Dry Gauze & Dry Gauze, Secured with Roll Gauze, Secured with Tape Secured with Tape Tape -Other Covering ABD -Fibracol Plus 4x4 1 -Hysept Treatment Response Procedure Procedure Tolerated Well Tolerated Well Pain Scale: 0-10 Numeric Is Patient Pain Free? Yes Yes Yes WC - Visit Discharge Discharge Condition Stable Stable Stable Ambulatory Status Ambulatory Ambulatory Ambulatory Transportation Private Auto Private Auto [facility] Facility Type Home Health Home Health Orders Sent Yes Yes 03/23/25 10:49 Wound Care Center Nurse 3 #2- L Heel Fissure -Ulcer Cleansing -Foul Odor after Cleansing -Primary Dressing Applied -Other Dressing -Primary Dressing Covered/Secured with #3- R GR TOE PLANTAR -Ulcer Cleansing Rinsed/ Irrigated with Saline -Foul Odor after Cleansing -Primary Dressing Applied Fibracol Plus 4x4,Hysept -Other Dressing -Primary Dressing Covered/Secured with Dry Gauze, Secured with Tape -Fibracol Plus 4x4 1 -Hysept 1 #1 Sacrum Cluster -Ulcer Cleansing Rinsed/ Irrigated with Saline -Foul Odor after Cleansing No -Primary Dressing Applied Fibracol Plus 4x4,Hysept -Other Dressing -Primary Dressing Covered/Secured with Dry Gauze, Secured with Tape -Other Covering -Fibracol Plus 4x4 0 -Hysept 0 Treatment Response Pain Scale: 0-10 Numeric Is Patient Pain Free? Yes WC - Visit Discharge Discharge Condition Ambulatory Status Transportation Facility Type Orders Sent Additional Wound Tissue Removed: Callus fibrin devitalized tissue Additional Wound Wound debrided: Right great toe pad Laterality: Right Type of Debridement: Excisional debridement Anesthesia Used: 5% Lidocaine Gel Depth: Down to and including healthy tissue and in the subcutaneous layer Percentage of wound debrided: 100 Instrument Used: 7mm curette and - (Nippers) Tissue Removed: Slough and fibrin callus and devitalized tissue Severity: Fat Layer Exposed Amount of bleeding with debridement: None Bleeding Controlled with: Compression and gauze Patient tolerated procedure: Patient tolerated procedure well Assessment/Plan Assessment/Plan (1) Hyperglycemia due to type 2 diabetes mellitus: CODE(S): E11.65 - Type 2 diabetes mellitus with hyperglycemia QUALIFIERS: Diabetes mellitus possum trapper insulin use: with residential use Qualified Code(s): E11.65 - Type 2 diabetes mellitus with hyperglycemia; Z79.4 - skilled nursing (current) use of insulin (2) Nonhealing nonsurgical wound with fat layer exposed: CODE(S): T14.8XXA - Other injury of unspecified body region, initial encounter PLAN: Wash buttocks area with Hibiclens or antibacterial soap and water and apply Fibracol soaked in Dakin's applied to open area and cover with moistened gauze and ABD twice daily. Patient needs to offload meaning he can quit sitting on his buttocks and lay straight out on the couch or lay out in his bed either way cannot sit for more than 45 minutes a day at 15-minute increments. Increase his protein to 60 g/day Follow-up in 1 week (3) Non healing left heel wound: CODE(S): S91.302A - Unspecified open wound, left foot, initial encounter PLAN: Resolved continue paring down callus on heel and applying AmLactin cream to soften. (4) Open wound of right great toe: CODE(S): S91.101A - Unspecified open wound of right great toe without damage to nail, initial encounter QUALIFIERS: Encounter type: initial encounter Qualified Code(s): S91.101A - Unspecified open wound of right great toe without damage to nail, initial encounter (5) Decubitus ulcer of toe, stage 3: CODE(S): L89.893 - Pressure ulcer of other site, stage 3 QUALIFIERS: Laterality: left Qualified Code(s): L89.893 - Pressure ulcer of other site, stage 3
[2025-03-30 09:25] VITALS: BP 147/72; PULSE 98; RESP 18; TEMP 36.6
--- NOTE | 2025-03-30 10:19 | PCM.WC.PN ---
History of Present Illness Date of Service: 03/30/25 Chief Complaint: Follow-up of sacral wound from necrotizing fasciitis. History of Wound: This is a 65-year-old diabetic white male who apparently became extremely ill in October and his took him to the emergency room and he was diagnosed with necrotizing fasciitis of his rectal area. A large portion of the 4 inches deep and 2 to 3 inches wide was excised and everything is healed but on the outside there is still this nonhealing area. Very close to his rectum that is still open depth is very shallow but it is very still open. Patient is not a good diabetic and is not well-controlled we did discuss that that that is part of the problem he has to heal and he needs to get his sugars under control. He does have home health and they are doing wet-to-dry with [facility] along with his she is helping a lot and doing the wound care and pretty much have closed it down except for this 1 area. He is on aspirin a day. We will obtain cultures today and start wound care. Progress of Wound: The sacral wound is healed today . He can start with just a dry dressing for the next week on his sacral area. For padding and protecting. His left heel fissure is closed and just needs to be pared down on a regular basis and discussed that with the . It just he gets a lot of callus. The right great toe pad side has an open area with a lot of maceration around it also I think from the Adaptic and that his feet sweat profusely. Continue to debride all of the callus off and debride the wound it is measuring the same. Patient is finished with linezolid for his bacteria in his heel. He is being good about wearing socks and mostly shoes most of the time now rather than walking barefoot around the house. All measurements are smaller in the heel is resolved Subjective Subjective Patient is pleased with outcomes. He needs to do better job with his heel of paring down the callus and using the AmLactin cream on his skin and is just so dry and it cracks easily. Objective Data Objective Data No sign of infection the sacrum is cleaned and clear and healed just needs to cover it for another week to make sure that the new skin does not breakdown. Left heel is for sure is there but he needs to do better about getting it pared down and using his AmLactin cream to soften the skin he is not doing that. And his right great toe is still about the same measurements we will give it 1 more week using the current treatment of fibrin call with Dakin[facility] but he needs to be more aggressive with that also maybe increase it to twice a day might help. Vital Signs: Vital Signs Temp Pulse Resp BP O2 Del Method 98 F 98 18 147/72 H Room Air 03/30/25 09:25 03/30/25 09:25 03/30/25 09:25 03/30/25 09:25 03/30/25 09:25 Oxygen Delivery Method Room Air Lab / Micro Data Micro: Microbiology 03/09/25 09:00 Wound - Heel, Left Gram Stain - Final 03/09/25 09:00 Wound - Heel, Left Wound Culture - Final Staphylococcus pseudintermediu Staphylococcus haemolyticus Enterococcus faecalis 03/09/25 09:00 Wound - Heel, Left Anaerobic Culture - Final No anaerobic bacteria isolated. Physical Exam Const oriented x3 General Appearance: cooperative Exam Limitations: no limitations HEENT normocephalic Nose: external nose normal External Ear: external ears normal Eyes General Eye: normal appearance of both eyes Neck full ROM General: normal visual inspection Resp normal respiratory effort Effort and Inspection: able to speak in complete sentences Auscultation: clear to auscultation bilaterally Cardio regular rate and regular rhythm Palpation: normal PMI Rate: regular rate Rhythm: regular rhythm GI Palpation: soft and no hepatosplenomegaly Back/Spine Cervical Spine: cervical ROM normal Thoracic Spine / Upper Back: normal to inspection Lumbar Spine / Lower Back: normal to inspection Extremity General Extremity: normal exam except as noted and other findings Other Details: Open fissure on the left heel and right great toe pad is open wound Skin Wounds: wounds noted Wound Narrative: Irregular shaped positive depth wound perirectal area of the sacrum Neuro oriented x3 Psych Appearance: grossly normal Speech: normal speech Thought Content: normal thought content Judgement: judgement good Debridement Note Debridement Note Wound debrided: Right great toe Laterality: Right Wound Grade/Stage: Stage II Type of Debridement: Excisional debridement Anesthesia Used: 5% Lidocaine Gel Depth: in the subcutaneous layer Percentage of wound debrided: 100 Instrument Used: 7mm curette Tissue Removed: Callus macerated tissue and fibrin Severity: Fat Layer Exposed Amount of bleeding with debridement: Mild Bleeding Controlled with: Compression and gauze Patient tolerated procedure: Patient tolerated procedure well Post-Debridement Measurements and Additional Note: Post-Debridement Measurements/Treatment - Nurse 1 - General Ulcer Assessment Start: 03/02/25 08:47 Freq: Status: Active Protocol: BRITTANY Activity Type Activity Date Activity User E-sign Co-sign Detail Recorded Client Recorded Date Recorded By Document 03/02/25 08:47 RB [id number] 03/02/25 08:49 RB Document 03/09/25 08:36 KW [id number] 03/09/25 08:43 KW Document 03/16/25 09:24 ML [id number] 03/16/25 09:32 ML Document 03/23/25 09:43 ML [id number] 03/23/25 09:52 ML Document 03/30/25 09:25 DS [id number] 03/30/25 09:36 DS 03/02/25 03/09/25 03/16/25 08:47 08:36 09:24 - Today's Visit Information Type of service Follow-up Visit Follow-up Visit Follow-up Visit (Physician/ASSESSMENT CONSULTANT (Physician/ASSESSMENT CONSULTANT (Physician/ASSESSMENT CONSULTANT ) ) ) Arrival Mode Ambulatory, Ambulatory Ambulatory Walker Transfer Assistance None None Accompanied by Patient Identification Verified (Name & Yes Yes Yes ) Patient Requires Transmission-Based No No Precautions Safety Precautions Vital Signs Temperature (97.8 F-99.1 F) 96.5 F L 96.9 F L 97.1 F L Temperature Source Temporal Temporal Temporal Pulse Rate (60-100) 62 68 Pulse Location Monitor Monitor Respiratory Rate (12-18) 18 18 15 Respiratory rate source Observation Observation Observation Oxygen Delivery Method Room Air Blood Pressure (90/60-120/80) 161/76 H 152/109 H 130/81 H Blood Pressure Mean (mm Hg) 104 123 97 Source Monitor Monitor Monitor Position Semi-Fowlers Sitting Sitting Blood Pressure Location Left Arm Right Arm Right Arm History Since Last Visit- (Skip if this is Patient's initial visit) Have you changed medications since your No No No last visit? Any new allergies or adverse reactions No No No Had a fall/change in ADL's that may No No No increase risk of falls Signs or symptoms of abuse and/or No No No neglect since last visit Have you been in the hospital since your No No No last visit? Has dressing in place as prescribed Yes Yes Yes Has compression in place as prescribed N/A N/A No Has offloadiing in place as prescribed N/A N/A No Experienced any changes in pain level or No No No management Left Footwear Regular Shoe Right Footwear Regular Shoe Pain Scale: 0-10 Numeric Is Patient Pain Free? Yes Yes Yes 03/23/25 03/30/25 09:43 09:25 - Today's Visit Information Type of service Follow-up Visit Follow-up Visit (Physician/ASSESSMENT CONSULTANT (Physician/ASSESSMENT CONSULTANT ) ) Arrival Mode Ambulatory Ambulatory Transfer Assistance None Accompanied by Patient Identification Verified (Name & Yes Yes ) Patient Requires Transmission-Based No No Precautions Safety Precautions Fall Prevention Vital Signs Temperature (97.8 F-99.1 F) 97.2 F L 98 F Temperature Source Temporal Temporal Pulse Rate (60-100) 73 98 Pulse Location Monitor Monitor Respiratory Rate (12-18) 15 18 Respiratory rate source Observation Monitor Oxygen Delivery Method Room Air Blood Pressure (90/60-120/80) 162/88 H 147/72 H Blood Pressure Mean (mm Hg) 112 97 Source Monitor Monitor Position Sitting Supine Blood Pressure Location Right Arm Right Arm History Since Last Visit- (Skip if this is Patient's initial visit) Have you changed medications since your No No last visit? Any new allergies or adverse reactions No No Had a fall/change in ADL's that may No No increase risk of falls Signs or symptoms of abuse and/or No No neglect since last visit Have you been in the hospital since your No last visit? Has dressing in place as prescribed Yes Yes Has compression in place as prescribed N/A N/A Has offloadiing in place as prescribed N/A N/A Experienced any changes in pain level or No No management Left Footwear Regular Shoe Right Footwear Regular Shoe Pain Scale: 0-10 Numeric Is Patient Pain Free? Yes Yes - Nurse 1 - General Ulcer Measurement Start: 03/02/25 08:47 Freq: Status: Active Protocol: Activity Type Activity Date Activity User E-sign Co-sign Detail Recorded Client Recorded Date Recorded By Document 03/02/25 08:47 RB [id number] 03/02/25 08:49 RB Document 03/09/25 08:36 KW [id number] 03/09/25 08:43 KW Document 03/16/25 09:24 ML [id number] 03/16/25 09:32 ML Document 03/23/25 09:43 ML [id number] 03/23/25 09:52 ML Document 03/30/25 09:25 DS [id number] 03/30/25 09:36 DS 03/02/25 03/09/25 03/16/25 08:47 08:36 09:24 Wound Center Nurse 1 #2- L Heel Fissure -Current Size (cm) - Length 0.1 -Current Size (cm) - Width 0.1 -Current Size (cm) - Depth 0.1 -Total Square Cm 0.01 -Exudate Amt -Granulation Amt -Slough/Fibrin No -Necrosis Amt None Present (0 %) -Texture (Casandra-wound Skin Appearance) Assessed -Moisture (Casandra-wound Skin Appearance) Assessed -Color (Casandra-wound Skin Appearance) Assessed -Temperature (Casandra-wound Skin No Abnormality Appearance) (Pt Warm) -Tenderness on Palpation (Casandra-wound No Skin Appearance) -Ulcer Cleansing Soap and Water -Foul Odor after Cleansing No -Anesthetic Used 4% Lidocaine Solution #1 Sacrum Cluster -Combined with other wound No -Current Size (cm) - Length 1.2 1.1 2 -Current Size (cm) - Width 0.5 0.2 0.3 -Current Size (cm) - Depth 0.1 0.1 0.1 -Total Square Cm 0.60 0.22 0.6 -Date of Last Picture (Recall this 03/09/25 field) -Photo Taken Yes -Tunneling No -Undermining/Tunneling No -Circular Undermining No -Exudate Amt Medium Small -Exudate Type Serosanguineous Serosanguineous -Wound Margin Distinct, Distinct, Outline Outline Attached Attached -Granulation Amt Medium (34-66%) Small (1-33%) None Present (0 %) -Granulation Quality Earl Earl,Red -Slough/Fibrin Yes Yes -Necrosis Amt Medium (34-66%) Small (1-33%) -Necrotic Tissue Type Adherent Slough Adherent Slough -Structure Exposed N/A -Texture (Casandra-wound Skin Appearance) Assessed, Assessed Assessed Scarring -Moisture (Casandra-wound Skin Appearance) Assessed Assessed, Assessed Maceration -Color (Casandra-wound Skin Appearance) Assessed Assessed Assessed -Temperature (Casandra-wound Skin No Abnormality No Abnormality No Abnormality Appearance) (Pt Warm) (Pt Warm) (Pt Warm) -Tenderness on Palpation (Casandra-wound No No No Skin Appearance) -Ulcer Cleansing Wound Cleanser Soap and Water Rinsed/ Irrigated with Saline -Foul Odor after Cleansing No No No -Anesthetic Used 5% Lidocaine 5% Lidocaine 5% Lidocaine Gel Gel Gel #3- R GR TOE PLANTAR -Current Size (cm) - Length 1.3 -Current Size (cm) - Width 1 -Current Size (cm) - Depth 0.2 -Total Square Cm 1.3 -Date of Last Picture (Recall this field) -Photo Taken -Tunneling -Undermining/Tunneling -Circular Undermining -Exudate Amt Medium -Exudate Type Serosanguineous -Wound Margin Distinct, Outline Attached -Granulation Amt -Granulation Quality -Slough/Fibrin Yes -Necrosis Amt Small (1-33%) -Necrotic Tissue Type Adherent Slough -Texture (Casandra-wound Skin Appearance) Assessed -Moisture (Casandar-wound Skin Appearance) Assessed -Color (Casandra-wound Skin Appearance) Assessed -Temperature (Casandra-wound Skin No Abnormality Appearance) (Pt Warm) -Tenderness on Palpation (Casandra-wound No Skin Appearance) -Ulcer Cleansing Soap and Water -Foul Odor after Cleansing No -Anesthetic Used 5% Lidocaine Gel 03/23/25 03/30/25 09:43 09:25 Wound Center Nurse 1 #2- L Heel Fissure -Current Size (cm) - Length 0.1 -Current Size (cm) - Width 0.1 -Current Size (cm) - Depth 0.1 -Total Square Cm 0.01 -Exudate Amt None Present -Granulation Amt None Present (0 %) -Slough/Fibrin No -Necrosis Amt None Present (0 %) -Texture (Casandra-wound Skin Appearance) Assessed -Moisture (Casandra-wound Skin Appearance) Assessed,Dry/ Scaly -Color (Casandra-wound Skin Appearance) Assessed -Temperature (Casandra-wound Skin No Abnormality Appearance) (Pt Warm) -Tenderness on Palpation (Casandra-wound No Skin Appearance) -Ulcer Cleansing Rinsed/ Irrigated with Saline -Foul Odor after Cleansing No -Anesthetic Used 5% Lidocaine Gel #1 Sacrum Cluster -Combined with other wound -Current Size (cm) - Length 0.5 0.1 -Current Size (cm) - Width 0.1 0.1 -Current Size (cm) - Depth 0.1 0.1 -Total Square Cm 0.05 0.01 -Date of Last Picture (Recall this 03/30/25 field) -Photo Taken Yes -Tunneling No -Undermining/Tunneling No -Circular Undermining No -Exudate Amt Small None Present -Exudate Type Sanguineous -Wound Margin Distinct, Outline Attached -Granulation Amt -Granulation Quality -Slough/Fibrin Yes -Necrosis Amt Small (1-33%) -Necrotic Tissue Type Adherent Slough -Structure Exposed -Texture (Casandra-wound Skin Appearance) Assessed Assessed -Moisture (Casandra-wound Skin Appearance) Assessed Assessed -Color (Casandra-wound Skin Appearance) Assessed Assessed -Temperature (Casandra-wound Skin No Abnormality No Abnormality Appearance) (Pt Warm) (Pt Warm) -Tenderness on Palpation (Casandra-wound No No Skin Appearance) -Ulcer Cleansing Rinsed/ Soap and Water Irrigated with Saline -Foul Odor after Cleansing No -Anesthetic Used 5% Lidocaine 5% Lidocaine Gel Gel #3- R GR TOE PLANTAR -Current Size (cm) - Length 1.5 0.9 -Current Size (cm) - Width 1.5 1.4 -Current Size (cm) - Depth 0.2 0.1 -Total Square Cm 2.25 1.26 -Date of Last Picture (Recall this 03/30/25 field) -Photo Taken Yes -Tunneling No -Undermining/Tunneling No -Circular Undermining No -Exudate Amt Medium Small -Exudate Type Serosanguineous Serosanguineous -Wound Margin Thickened -Granulation Amt Small (1-33%) Large (67-100%) -Granulation Quality Red -Slough/Fibrin Yes -Necrosis Amt Medium (34-66%) -Necrotic Tissue Type Adherent Slough -Texture (Casandra-wound Skin Appearance) Assessed Assessed -Moisture (Casandra-wound Skin Appearance) Maceration Assessed, Maceration -Color (Casandra-wound Skin Appearance) Assessed Assessed -Temperature (Casandra-wound Skin No Abnormality No Abnormality Appearance) (Pt Warm) (Pt Warm) -Tenderness on Palpation (Casandra-wound No No Skin Appearance) -Ulcer Cleansing Rinsed/ Soap and Water Irrigated with Saline -Foul Odor after Cleansing No No -Anesthetic Used 5% Lidocaine 5% Lidocaine Gel Gel WC - Nurse 2 - General Ulcer CM Notes Start: 03/02/25 08:47 Freq: Status: Active Protocol: Activity Type Activity Date Activity User E-sign Co-sign Detail Recorded Client Recorded Date Recorded By Document 03/02/25 08:59 BM [id number] 03/02/25 09:03 BM Document 03/09/25 08:47 BM [id number] 03/09/25 09:06 BM Document 03/16/25 09:49 BM [id number] 03/16/25 10:00 BM Document 03/23/25 10:26 BMF [id number] 03/23/25 10:35 BM Document 03/30/25 09:44 BM [id number] 03/30/25 09:50 F 03/02/25 03/09/25 03/16/25 08:59 08:47 09:49 Wound Center Nurse 2 #2- L Heel Fissure -Time 08:51 09:51 -Correct Patient Yes Yes -Correct Side, Site, Position Yes Yes -Correct Procedure Yes Yes -Procedure Performed Yes Yes -Type of Procedure Debridement Debridement -Clinical Debridement Muscle / Fascia Subcutaneous -Tissue Removed Muscle,Fascia Subcutaneous -Post Debridement (cm) - Length 3.9 1.5 -Post Debridement (cm) - Width 0.2 0.2 -Post Debridement (cm) - Depth 0.4 0.3 -Total Square (Post) (cm) 0.78 0.30 -Area of Debridement (cm) - Length 3.9 1.5 -Area of Debridement (cm) - Width 0.2 0.2 -Total Square (Area) (cm) 0.78 0.30 -Tunneling No No -Undermining/Tunneling No No -Circular Undermining No No -Wound/Ulcer Outcome Not Healed Not Healed -Ulcer Cleansing Rinsed/ Rinsed/ Irrigated with Irrigated with Saline Saline -Foul Odor after Cleansing No No -Bioengineered Tissue No No -Bleeding Controlled with Pressure Pressure -Treatment Response Procedure Procedure Tolerated Well Tolerated Well -Debridement - Subq, 1st 20sq cm No -Debridement - Muscle / Fascia, 1st Yes 20sq cm #1 Sacrum Cluster -Time 08:59 08:47 09:49 -Correct Patient Yes Yes Yes -Correct Side, Site, Position Yes Yes Yes -Correct Procedure Yes Yes Yes -Procedure Performed Yes Yes Yes -Type of Procedure Debridement Debridement Debridement -Clinical Debridement Subcutaneous Subcutaneous Subcutaneous -Tissue Removed Subcutaneous Subcutaneous Subcutaneous -Post Debridement (cm) - Length 1.5 1 2 -Post Debridement (cm) - Width 0.6 0.7 1.5 -Post Debridement (cm) - Depth 0.2 0.1 0.2 -Total Square (Post) (cm) 0.90 0.7 3.0 -Area of Debridement (cm) - Length 1.5 1 2 -Area of Debridement (cm) - Width 0.6 0.7 1.5 -Total Square (Area) (cm) 0.90 0.7 3.0 -Tunneling No No No -Undermining/Tunneling No No No -Circular Undermining No No No -Wound/Ulcer Outcome Not Healed Not Healed Not Healed -Ulcer Cleansing Rinsed/ Rinsed/ Rinsed/ Irrigated with Irrigated with Irrigated with Saline Saline Saline -Foul Odor after Cleansing No No No -Bioengineered Tissue No No No -Bleeding Controlled with Pressure Pressure Pressure -Treatment Response Procedure Procedure Procedure Tolerated Well Tolerated Well Tolerated Well -Debridement - Subq, 1st 20sq cm Yes Yes No #3- R GR TOE PLANTAR -Time 09:01 09:54 -Correct Patient Yes Yes -Correct Side, Site, Position Yes Yes -Correct Procedure Yes Yes -Procedure Performed Yes Yes -Type of Procedure Debridement Debridement -Clinical Debridement Subcutaneous Subcutaneous -Tissue Removed Subcutaneous Subcutaneous -Post Debridement (cm) - Length 1.5 1.3 -Post Debridement (cm) - Width 2 1.7 -Post Debridement (cm) - Depth 0.2 0.2 -Total Square (Post) (cm) 3.0 2.21 -Area of Debridement (cm) - Length 1.5 1.3 -Area of Debridement (cm) - Width 2 1.7 -Total Square (Area) (cm) 3.0 2.21 -Tunneling No No -Undermining/Tunneling No No -Circular Undermining No No -Wound/Ulcer Outcome Not Healed Not Healed -Ulcer Cleansing Rinsed/ Rinsed/ Irrigated with Irrigated with Saline Saline -Foul Odor after Cleansing No No -Bioengineered Tissue No No -Bleeding Controlled with Pressure Pressure -Treatment Response Procedure Procedure Tolerated Well Tolerated Well -Debridement - Subq, 1st 20sq cm No Yes Pain Scale: 0-10 Numeric Is Patient Pain Free? Yes Yes Yes 03/23/25 03/30/25 10:26 09:44 Wound Center Nurse 2 #2- L Heel Fissure -Time 10:27 -Correct Patient -Correct Side, Site, Position -Correct Procedure -Procedure Performed No -Type of Procedure -Clinical Debridement -Tissue Removed -Post Debridement (cm) - Length 0 -Post Debridement (cm) - Width 0 -Post Debridement (cm) - Depth 0 -Total Square (Post) (cm) 0 -Area of Debridement (cm) - Length 0 -Area of Debridement (cm) - Width 0 -Total Square (Area) (cm) 0 -Tunneling -Undermining/Tunneling -Circular Undermining -Wound/Ulcer Outcome Healed- Epithelialized -Ulcer Cleansing -Foul Odor after Cleansing -Bioengineered Tissue -Bleeding Controlled with -Treatment Response -Debridement - Subq, 1st 20sq cm -Debridement - Muscle / Fascia, 1st 20sq cm #1 Sacrum Cluster -Time 10: 09:45 -Correct Patient Yes -Correct Side, Site, Position Yes -Correct Procedure Yes -Procedure Performed Yes -Type of Procedure Debridement -Clinical Debridement Subcutaneous -Tissue Removed Subcutaneous -Post Debridement (cm) - Length 0.5 0 -Post Debridement (cm) - Width 0.3 0 -Post Debridement (cm) - Depth 0.1 0 -Total Square (Post) (cm) 0.15 0 -Area of Debridement (cm) - Length 0.5 0 -Area of Debridement (cm) - Width 0.3 0 -Total Square (Area) (cm) 0.15 0 -Tunneling No No -Undermining/Tunneling No No -Circular Undermining No No -Wound/Ulcer Outcome Not Healed Healed- Epithelialized -Ulcer Cleansing Rinsed/ Irrigated with Saline -Foul Odor after Cleansing No -Bioengineered Tissue No -Bleeding Controlled with Pressure -Treatment Response Procedure Tolerated Well -Debridement - Subq, 1st 20sq cm Yes #3- R GR TOE PLANTAR -Time 10: 09:45 -Correct Patient Yes Yes -Correct Side, Site, Position Yes Yes -Correct Procedure Yes Yes -Procedure Performed Yes Yes -Type of Procedure Debridement Debridement -Clinical Debridement Subcutaneous Subcutaneous -Tissue Removed Subcutaneous Subcutaneous -Post Debridement (cm) - Length 1.3 1 -Post Debridement (cm) - Width 1.6 1.5 -Post Debridement (cm) - Depth 0.2 0.2 -Total Square (Post) (cm) 2.08 1.5 -Area of Debridement (cm) - Length 1.3 1 -Area of Debridement (cm) - Width 1.6 1.5 -Total Square (Area) (cm) 2.08 1.5 -Tunneling No No -Undermining/Tunneling No No -Circular Undermining No No -Wound/Ulcer Outcome Not Healed Not Healed -Ulcer Cleansing Rinsed/ Rinsed/ Irrigated with Irrigated with Saline Saline -Foul Odor after Cleansing No No -Bioengineered Tissue No No -Bleeding Controlled with Pressure Pressure -Treatment Response Procedure Procedure Tolerated Well Tolerated Well -Debridement - Subq, 1st 20sq cm No Yes Pain Scale: 0-10 Numeric Is Patient Pain Free? Yes Yes WC - Nurse 3 - General Ulcer D/C NN Start: 03/02/25 08:47 Freq: Status: Active Protocol: Activity Type Activity Date Activity User E-sign Co-sign Detail Recorded Client Recorded Date Recorded By Document 03/02/25 09:13 DL [id number] 03/02/25 09:14 DL Document 03/09/25 09:21 DL [id number] 03/09/25 09:23 DL Document 03/16/25 10:12 DL [id number] 03/16/25 10:16 DL Document 03/23/25 10:49 ML [id number] 03/23/25 10:50 ML Document 03/30/25 10:01 BMF [id number] 03/30/25 10:02 BMF Edit Result 03/30/25 10:01 BMF (1) [id number] 03/30/25 10:11 BMF (1) #3- R GR TOE PLANTAR - Other Dressing => moist w/ dakins 03/02/25 03/09/25 03/16/25 09:13 09:21 10:12 Wound Care Center Nurse 3 #2- L Heel Fissure -Ulcer Cleansing Soap and Water Soap and Water -Foul Odor after Cleansing No No -Primary Dressing Applied NonAdherent Contact Layer -Other Dressing dakins/fibracol fibracol/dakins -Primary Dressing Covered/Secured with Dry Gauze & Dry Gauze, Roll Gauze, Secured with Secured with Tape Tape #1 Sacrum Cluster -Ulcer Cleansing Rinsed/ Soap and Water Soap and Water Irrigated with Saline -Foul Odor after Cleansing No No No -Primary Dressing Applied Fibracol Plus 4x4 -Other Dressing dakins dakins/fibracol fibracol/dakins -Primary Dressing Covered/Secured with Dry Gauze, Dry Gauze & Dry Gauze, Secured with Roll Gauze, Secured with Tape Secured with Tape Tape -Other Covering ABD -Fibracol Plus 4x4 1 -Hysept #3- R GR TOE PLANTAR -Ulcer Cleansing Soap and Water Soap and Water -Foul Odor after Cleansing No No -Primary Dressing Applied Fibracol Plus Fibracol Plus 4x4 4x4,NonAdherent Contact Layer -Other Dressing DAKINS dakins MOISTENED FIBRACOL -Primary Dressing Covered/Secured with Dry Gauze & Dry Gauze, Roll Gauze, Secured with Secured with Tape Tape -Fibracol Plus 4x4 1 1 -Hysept Treatment Response Procedure Procedure Tolerated Well Tolerated Well Pain Scale: 0-10 Numeric Is Patient Pain Free? Yes Yes Yes WC - Visit Discharge Discharge Condition Stable Stable Stable Ambulatory Status Ambulatory Ambulatory Ambulatory Transportation Private Auto Private Auto Private Auto Accompanied by Facility Type Home Health Home Health Orders Sent Yes Yes 03/23/25 03/30/25 10:49 10:01 Wound Care Center Nurse 3 #2- L Heel Fissure -Ulcer Cleansing -Foul Odor after Cleansing -Primary Dressing Applied -Other Dressing -Primary Dressing Covered/Secured with #1 Sacrum Cluster -Ulcer Cleansing Rinsed/ Irrigated with Saline -Foul Odor after Cleansing No -Primary Dressing Applied Fibracol Plus 4x4,Hysept -Other Dressing -Primary Dressing Covered/Secured with Dry Gauze, Secured with Tape -Other Covering -Fibracol Plus 4x4 0 -Hysept 0 #3- R GR TOE PLANTAR -Ulcer Cleansing Rinsed/ Rinsed/ Irrigated with Irrigated with Saline Saline -Foul Odor after Cleansing No -Primary Dressing Applied Fibracol Plus Fibracol Plus 4x4,Hysept 4x4 -Other Dressing moist w/ dakins -Primary Dressing Covered/Secured with Dry Gauze, Dry Gauze, Secured with Secured with Tape Tape -Fibracol Plus 4x4 1 1 -Hysept 1 Treatment Response Procedure Tolerated Well Pain Scale: 0-10 Numeric Is Patient Pain Free? 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 (4) Open wound of right great toe: CODE(S): S91.101A - Unspecified open wound of right great toe without damage to nail, initial encounter QUALIFIERS: Encounter type: initial encounter Qualified Code(s): S91.101A - Unspecified open wound of right great toe without damage to nail, initial encounter PLAN: Wash right great toe with antibacterial soap and water and apply the Aquacel extra to the wound base moistened with Dakin's cover with dry gauze Follow-up in 1 week these are daily dressings (5) Decubitus ulcer of toe, stage 3: CODE(S): L89.893 - Pressure ulcer of other site, stage 3 QUALIFIERS: Laterality: left Qualified Code(s): L89.893 - Pressure ulcer of other site, stage 3
--- NOTE | 2025-03-31 09:27 | WC ---
PHOTO-RIGHT GREAT TOE 03/30/25
--- NOTE | 2025-03-31 09:32 | WC ---
PHOTO-SACRUM 03/30/25
--- NOTE | 2025-03-31 09:43 | WC ---
PHOTO-SACRUM 03/30/25
== END 2025-03-31 23:59 | disposition home or self-care (01) ==
LOC: WC 09:30
PROVIDERS: PCP Family Medicine; Referring Provider Family Medicine; Visit Provider Nurse Practitioner
DX: S31.000A Unspecified open wound of lower back and pelvis without penetration into retroperitoneum, initial encounter (principal); L89.893 Pressure ulcer of other site, stage 3; E11.65 Type 2 diabetes mellitus with hyperglycemia; Z79.4 Long term (current) use of insulin; E11.42 Type 2 diabetes mellitus with diabetic polyneuropathy; S91.302A Unspecified open wound, left foot, initial encounter; X58.XXXA Exposure to other specified factors, initial encounter; Z79.84 Long term (current) use of oral hypoglycemic drugs; Z79.899 Other long term (current) drug therapy; Z87.39 Personal history of other diseases of the musculoskeletal system and connective tissue
CPT/HCPCS: 11042; 11043; 87070; 87075; 87077; 87186; 87205

== ENCOUNTER 2025-04-27 09:45 | Outpatient (RCR) | payer MEDICARE, OTHER, SELFPAY ==
[2025-04-06 09:34] VITALS: BP 144/83; PULSE 74; RESP 18; TEMP 36.4
--- NOTE | 2025-04-06 11:12 | PN.PCM_ITS ---
History of Present Illness Date of Service: 04/06/25 Chief Complaint: Follow-up of sacral wound from necrotizing fasciitis. History of Wound: This is a 65-year-old diabetic white male who apparently became extremely ill in October and his took him to the emergency room and he was diagnosed with necrotizing fasciitis of his rectal area. A large portion of the 4 inches deep and 2 to 3 inches wide was excised and everything is healed but on the outside there is still this nonhealing area. Very close to his rectum that is still open depth is very shallow but it is very still open. Patient is not a good diabetic and is not well-controlled we did discuss that that that is part of the problem he has to heal and he needs to get his sugars under control. He does have home health and they are doing wet-to-dry with Dakin's along with his she is helping a lot and doing the wound care and pr zahira much have closed it down except for this 1 area. He is on aspirin a day. We will obtain cultures today and start wound care. Progress of Wound: The sacrum is healed now are just healing about the right great toe and it is improving. No sign of infection no increase in redness surrounding tissue looks flesh colored looks good measuring smaller shallow not as callus around the edge they are doing better about offloading and moisturizing his skin. Subjective Subjective Patient is pleased with outcomes Objective Data Objective Data Will continue using the Fibracol soaked in Dakin's on the great toe amLactin cream to all the heels and surrounding tissue and his sacrum . Vital Signs: Vital Signs Temp Pulse Resp BP 97.5 F L 74 18 144/83 H 04/06/25 09:34 04/06/25 09:34 04/06/25 09:34 04/06/25 09:34 Physical Exam Const oriented x3 General Appearance: cooperative Exam Limitations: no limitations HEENT normocephalic Nose: external nose normal External Ear: external ears normal Eyes General Eye: normal appearance of both eyes Neck full ROM General: normal visual inspection Resp normal respiratory effort Effort and Inspection: able to speak in complete sentences Auscultation: clear to auscultation bilaterally Cardio regular rate and regular rhythm Palpation: normal PMI Rate: regular rate Rhythm: regular rhythm GI Palpation: soft and no hepatosplenomegaly Back/Spine Cervical Spine: cervical ROM normal Thoracic Spine / Upper Back: normal to inspection Lumbar Spine / Lower Back: normal to inspection Extremity General Extremity: normal exam except as noted and other findings Other Details: Open fissure on the left heel and right great toe pad is open wound Skin Wounds: wounds noted Wound Narrative: Irregular shaped positive depth wound perirectal area of the sacrum Neuro oriented x3 Psych Appearance: grossly normal Speech: normal speech Thought Content: normal thought content Judgement: judgement good Debridement Note Debridement Note Wound debrided: Right great toe Laterality: Right Wound Grade/Stage: Stage 3 Type of Debridement: Excisional debridement Anesthesia Used: 5% Lidocaine Gel Depth: in the subcutaneous layer Percentage of wound debrided: 100 Instrument Used: 5mm curette Tissue Removed: Callus macerated tissue and fibrin Severity: Fat Layer Exposed Bleeding Controlled with: Compression and gauze Patient tolerated procedure: Patient tolerated procedure well Post-Debridement Measurements and Additional Note: Post-Debridement Measurements/Treatment - Nurse 1 - General Ulcer Assessment Start: 04/06/25 09:33 Freq: Status: Active Protocol: BRITTANY Activity Type Activity Date Activity User E-sign Co-sign Detail Recorded Client Recorded Date Recorded By Document 04/06/25 09:34 [id number] 04/06/25 09:36 HILTON 04/06/25 09:34 - Today's Visit Information Type of service Follow-up Visit (Physician/CIGARETTE VENDOR ) Arrival Mode Ambulatory Transfer Assistance Manual Patient Identification Verified (Name & Yes ) Patient Requires Transmission-Based No Precautions Vital Signs Temperature (97.8 F-99.1 F) 97.5 F L Temperature Source Temporal Pulse Rate (60-100) 74 Pulse Location Monitor Respiratory Rate (12-18) 18 Respiratory rate source Observation Blood Pressure (90/60-120/80) 144/83 H Blood Pressure Mean (mm Hg) 103 Source Monitor Position Semi-Fowlers Blood Pressure Location Left Arm History Since Last Visit- (Skip if this is Patient's initial visit) Have you changed medications since your No last visit? Any new allergies or adverse reactions No Had a fall/change in ADL's that may No increase risk of falls Signs or symptoms of abuse and/or No neglect since last visit Have you been in the hospital since your No last visit? Has dressing in place as prescribed Yes Has compression in place as prescribed N/A Has offloadiing in place as prescribed Yes Experienced any changes in pain level or No management Pain Scale: 0-10 Numeric Is Patient Pain Free? Yes WC - Nurse 1 - General Ulcer Measurement Start: 04/06/25 09:33 Freq: Status: Active Protocol: Activity Type Activity Date Activity User E-sign Co-sign Detail Recorded Client Recorded Date Recorded By Document 04/06/25 09:34 RB [id number] 04/06/25 09:36 RB 04/06/25 09:34 Wound Center Nurse 1 #3- R GR TOE PLANTAR -Combined with other wound No -Current Size (cm) - Length 1 -Current Size (cm) - Width 1 -Current Size (cm) - Depth 0.1 -Total Square Cm 1 -Photo Taken Yes -Tunneling No -Undermining/Tunneling No -Circular Undermining No -Exudate Amt Medium -Exudate Type Serosanguineous -Wound Margin Fibrotic Scar, Thickened Scar -Granulation Amt Medium (34-66%) -Granulation Quality [place] -Slough/Fibrin Yes -Necrosis Amt Small (1-33%) -Necrotic Tissue Type Adherent Slough -Structure Exposed N/A -Texture (Casandra-wound Skin Appearance) Assessed,Callus -Moisture (Casandra-wound Skin Appearance) Assessed -Color (Casandra-wound Skin Appearance) Assessed -Temperature (Casandra-wound Skin No Abnormality Appearance) (Pt Warm) -Tenderness on Palpation (Casandra-wound No Skin Appearance) -Ulcer Cleansing Wound Cleanser -Foul Odor after Cleansing No -Anesthetic Used 5% Lidocaine Gel WC - Nurse 2 - General Ulcer CM Notes Start: 04/06/25 09:33 Freq: Status: Active Protocol: Activity Type Activity Date Activity User E-sign Co-sign Detail Recorded Client Recorded Date Recorded By Document 04/06/25 09:44 DS [id number] 04/06/25 09:47 DS 04/06/25 09:44 Wound Center Nurse 2 -Time 09:44 -Correct Patient Yes -Correct Side, Site, Position Yes -Correct Procedure Yes -Procedure Performed Yes -Type of Procedure Debridement -Clinical Debridement Subcutaneous -Tissue Removed Subcutaneous -Post Debridement (cm) - Length 1.5 -Post Debridement (cm) - Width 1.3 -Post Debridement (cm) - Depth 0.2 -Total Square (Post) (cm) 1.95 -Area of Debridement (cm) - Length 1.5 -Area of Debridement (cm) - Width 1.3 -Total Square (Area) (cm) 1.95 -Tunneling No -Undermining/Tunneling No -Circular Undermining No -Wound/Ulcer Outcome Not Healed -Ulcer Cleansing Rinsed/ Irrigated with Saline -Foul Odor after Cleansing No -Bioengineered Tissue No -Bleeding Controlled with Pressure -Treatment Response Procedure Tolerated Well -Debridement - Subq, 1st 20sq cm Yes Pain Scale: 0-10 Numeric Is Patient Pain Free? Yes - Nurse 3 - General Ulcer D/C NN Start: 04/06/25 09:33 Freq: Status: Active Protocol: Activity Type Activity Date Activity User E-sign Co-sign Detail Recorded Client Recorded Date Recorded By Document 04/06/25 09:59 RB [id number] 04/06/25 10:00 RB 04/06/25 09:59 Wound Care Center Nurse 3 #3- R GR TOE PLANTAR -Ulcer Cleansing Rinsed/ Irrigated with Saline -Primary Dressing Applied Fibracol Plus 4x4 -Other Dressing fibracol moistened with dakins -Primary Dressing Covered/Secured with Dry Gauze & Roll Gauze, Secured with Tape -Fibracol Plus 4x4 1 Treatment Response Procedure Tolerated Well Pain Scale: 0-10 Numeric Is Patient Pain Free? 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 (4) Open wound of right great toe: CODE(S): S91.101A - Unspecified open wound of right great toe without damage to nail, initial encounter QUALIFIERS: Encounter type: initial encounter Qualified Code(s): S91.101A - Unspecified open wound of right great toe without damage to nail, initial encounter PLAN: Wash right great toe with antibacterial soap and water and apply the Aquacel extra to the wound base moistened with Dakin's cover with dry gauze Follow-up in 1 week these are daily dressings (5) Decubitus ulcer of toe, stage 3: CODE(S): L89.893 - Pressure ulcer of other site, stage 3 QUALIFIERS: Laterality: left Qualified Code(s): L89.893 - Pressure ulcer of other site, stage 3
[2025-04-13 09:30] VITALS: BP 137/89; PULSE 64; RESP 18; TEMP 36.6
--- NOTE | 2025-04-13 10:06 | PN.PCM_ITS ---
History of Present Illness Date of Service: 04/13/25 Chief Complaint: Follow-up of sacral wound from necrotizing fasciitis. History of Wound: This is a 65-year-old diabetic white male who apparently became extremely ill in October and his took him to the emergency room and he was diagnosed with necrotizing fasciitis of his rectal area. A large portion of the 4 inches deep and 2 to 3 inches wide was excised and everything is healed but on the outside there is still this nonhealing area. Very close to his rectum that is still open depth is very shallow but it is very still open. Patient is not a good diabetic and is not well-controlled we did discuss that that that is part of the problem he has to heal and he needs to get his sugars under control. He does have home health and they are doing wet-to-dry with [employer]in's along with his she is helping a lot and doing the wound care and pr zahira much have closed it down except for this 1 area. He is on aspirin a day. We will obtain cultures today and start wound care. Progress of Wound: The sacrum is healed now are just healing the right great toe and it is improving. No sign of infection no increase in redness surrounding tissue looks flesh colored looks good measuring smaller shallow not as callus around the edge they are doing better about offloading and moisturizing his skin. The toes depth is filling in nicely it is more flat this week looks better. No sign of infection we will continue using the Fibracol Subjective Subjective Patient is happy with outcomes and is compliant with treatments Objective Data Objective Data Continues to heal nicely the right great toe coccyx or sacrum is all healed. Right great toe is still healing and still open no sign of infection smaller than last week and more flat less depth. Will continue using the Fibracol Vital Signs: Vital Signs Temp Pulse Resp BP O2 Del Method 98 F 64 18 137/89 H Room Air 04/13/25 09:30 04/13/25 09:30 04/13/25 09:30 04/13/25 09:30 04/13/25 09:30 Oxygen Delivery Method Room Air Physical Exam Const oriented x3 General Appearance: cooperative Exam Limitations: no limitations HEENT normocephalic Nose: external nose normal External Ear: external ears normal Eyes General Eye: normal appearance of both eyes Neck full ROM General: normal visual inspection Resp normal respiratory effort Effort and Inspection: able to speak in complete sentences Auscultation: clear to auscultation bilaterally Cardio regular rate and regular rhythm Palpation: normal PMI Rate: regular rate Rhythm: regular rhythm GI Palpation: soft and no hepatosplenomegaly Back/Spine Cervical Spine: cervical ROM normal Thoracic Spine / Upper Back: normal to inspection Lumbar Spine / Lower Back: normal to inspection Extremity General Extremity: normal exam except as noted and other findings Other Details: Open fissure on the left heel and right great toe pad is open wound Skin Wounds: wounds noted Wound Narrative: Irregular shaped positive depth wound perirectal area of the sacrum Neuro oriented x3 Psych Appearance: grossly normal Speech: normal speech Thought Content: normal thought content Judgement: judgement good Debridement Note Debridement Note Wound debrided: Right great toe Laterality: Right Wound Grade/Stage: Stage 3 Type of Debridement: Excisional debridement Anesthesia Used: 5% Lidocaine Gel Depth: in the subcutaneous layer Percentage of wound debrided: 100 Instrument Used: 5mm curette Tissue Removed: Callus macerated tissue and fibrin Severity: Fat Layer Exposed Bleeding Controlled with: Compression and gauze Patient tolerated procedure: Patient tolerated procedure well Post-Debridement Measurements and Additional Note: Post-Debridement Measurements/Treatment - Nurse 1 - General Ulcer Assessment Start: 04/06/25 09:33 Freq: Status: Active Protocol: BRITTANY Activity Type Activity Date Activity User E-sign Co-sign Detail Recorded Client Recorded Date Recorded By Document 04/06/25 09:34 RB [id number] 04/06/25 09:36 RB Document 04/13/25 09:30 MO [id number] 04/13/25 09:36 MO 04/06/25 04/13/25 09:34 09:30 - Today's Visit Information Type of service Follow-up Visit Follow-up Visit (Physician/NETWORK RELAY TESTER (Physician/NETWORK RELAY TESTER ) ) Arrival Mode Ambulatory Ambulatory Transfer Assistance Manual Accompanied by Patient Identification Verified (Name & Yes Yes ) Patient Requires Transmission-Based No Precautions Safety Precautions Fall Prevention Vital Signs Temperature (97.8 F-99.1 F) 97.5 F L 98 F Temperature Source Temporal Temporal Pulse Rate (60-100) 74 64 Pulse Location Monitor Monitor Respiratory Rate (12-18) 18 18 Respiratory rate source Observation Observation Oxygen Delivery Method Room Air Blood Pressure (90/60-120/80) 144/83 H 137/89 H Blood Pressure Mean (mm Hg) 103 105 Source Monitor Monitor Position Semi-Fowlers Sitting Blood Pressure Location Left Arm Left Arm History Since Last Visit- (Skip if this is Patient's initial visit) Have you changed medications since your No last visit? Any new allergies or adverse reactions No Had a fall/change in ADL's that may No increase risk of falls Signs or symptoms of abuse and/or No neglect since last visit Have you been in the hospital since your No last visit? Has dressing in place as prescribed Yes Yes Has compression in place as prescribed N/A Yes Has offloadiing in place as prescribed Yes Yes Experienced any changes in pain level or No Yes management Left Footwear Regular Shoe Right Footwear Regular Shoe Pain Scale: 0-10 Numeric Is Patient Pain Free? Yes Yes WC - Nurse 1 - General Ulcer Measurement Start: 04/06/25 09:33 Freq: Status: Active Protocol: Activity Type Activity Date Activity User E-sign Co-sign Detail Recorded Client Recorded Date Recorded By Document 04/06/25 09:34 RB [id number] 04/06/25 09:36 RB Document 04/13/25 09:30 MO [id number] 04/13/25 09:36 MO 04/06/25 04/13/25 09:34 09:30 Wound Center Nurse 1 #3- R GR TOE PLANTAR -Combined with other wound No -Current Size (cm) - Length 1 0.9 -Current Size (cm) - Width 1 1.0 -Current Size (cm) - Depth 0.1 0.1 -Total Square Cm 1 0.90 -Date of Last Picture (Recall this 04/13/25 field) -Photo Taken Yes Yes -Tunneling No No -Undermining/Tunneling No No -Circular Undermining No No -Exudate Amt Medium Small -Exudate Type Serosanguineous Serosanguineous -Wound Margin Fibrotic Scar, Flat & Intact Thickened Scar -Granulation Amt Medium (34-66%) Large (67-100%) -Granulation Quality [place] Pale,[place] -Slough/Fibrin Yes -Necrosis Amt Small (1-33%) Small (1-33%) -Necrotic Tissue Type Adherent Slough Adherent Slough -Structure Exposed N/A -Texture (Casandra-wound Skin Appearance) Assessed,Callus Assessed,Callus -Moisture (Casandra-wound Skin Appearance) Assessed Assessed -Color (Casandra-wound Skin Appearance) Assessed Assessed -Temperature (Casandra-wound Skin No Abnormality No Abnormality Appearance) (Pt Warm) (Pt Warm) -Tenderness on Palpation (Casandra-wound No No Skin Appearance) -Ulcer Cleansing Wound Cleanser Soap and Water -Foul Odor after Cleansing No No -Anesthetic Used 5% Lidocaine 5% Lidocaine Gel Gel Lower Limb Edema Present NA WC - Nurse 2 - General Ulcer CM Notes Start: 04/06/25 09:33 Freq: Status: Active Protocol: Activity Type Activity Date Activity User E-sign Co-sign Detail Recorded Client Recorded Date Recorded By Document 04/06/25 09:44 DS [id number] 04/06/25 09:47 DS Document 04/13/25 09:42 BMF [id number] 04/13/25 09:51 BMF 04/06/25 04/13/25 09:44 09:42 Wound Center Nurse 2 #3- R GR TOE PLANTAR -Time 09:44 09:42 -Correct Patient Yes Yes -Correct Side, Site, Position Yes Yes -Correct Procedure Yes Yes -Procedure Performed Yes Yes -Type of Procedure Debridement Debridement -Clinical Debridement Subcutaneous Subcutaneous -Tissue Removed Subcutaneous Subcutaneous -Post Debridement (cm) - Length 1.5 1 -Post Debridement (cm) - Width 1.3 1.2 -Post Debridement (cm) - Depth 0.2 0.2 -Total Square (Post) (cm) 1.95 1.2 -Area of Debridement (cm) - Length 1.5 1 -Area of Debridement (cm) - Width 1.3 1.2 -Total Square (Area) (cm) 1.95 1.2 -Tunneling No No -Undermining/Tunneling No No -Circular Undermining No No -Wound/Ulcer Outcome Not Healed Not Healed -Ulcer Cleansing Rinsed/ Rinsed/ Irrigated with Irrigated with Saline Saline -Foul Odor after Cleansing No No -Bioengineered Tissue No No -Bleeding Controlled with Pressure Pressure -Treatment Response Procedure Procedure Tolerated Well Tolerated Well -Debridement - Subq, 1st 20sq cm Yes Yes Pain Scale: 0-10 Numeric Is Patient Pain Free? Yes Yes [id number] - Nurse 3 - General Ulcer D/C NN Start: 04/06/25 09:33 Freq: Status: Active Protocol: Activity Type Activity Date Activity User E-sign Co-sign Detail Recorded Client Recorded Date Recorded By Document 04/06/25 09:59 RB [id number] 04/06/25 10:00 RB Document 04/13/25 10:00 DL [id number] 04/13/25 10:01 DL 04/06/25 04/13/25 09:59 10:00 Wound Care Center Nurse 3 #3- R GR TOE PLANTAR -Ulcer Cleansing Rinsed/ Rinsed/ Irrigated with Irrigated with Saline Saline -Foul Odor after Cleansing No -Primary Dressing Applied Fibracol Plus Fibracol Plus 4x4 4x4 -Other Dressing fibracol Dakins moistened with moistened dakins fibracol -Primary Dressing Covered/Secured with Dry Gauze & Dry Gauze, Roll Gauze, Secured with Secured with Tape Tape -Fibracol Plus 4x4 1 1 Treatment Response Procedure Procedure Tolerated Well Tolerated Well Pain Scale: 0-10 Numeric Is Patient Pain Free? Yes Yes WC - Visit Discharge Discharge Condition Stable Stable Ambulatory Status Ambulatory Ambulatory Transportation Private Auto Private Auto Medication Reconcilliation completed & No provided to patient/care provider Clinical Summary of Care Provided Yes Assessment/Plan Assessment/Plan (1) Hyperglycemia due to type 2 diabetes mellitus: CODE(S): E11.65 - Type 2 diabetes mellitus with hyperglycemia QUALIFIERS: Diabetes mellitus intermediate designer insulin use: with intermediate designer use Qualified Code(s): E11.65 - Type 2 diabetes mellitus with hyperglycemia; Z79.4 - [facility] (current) use of insulin (2) Nonhealing nonsurgical wound with fat layer exposed: CODE(S): T14.8XXA - Other injury of unspecified body region, initial encounter PLAN: Buttocks is healed patient is discharge from doing wound care for that (3) Non healing left heel wound: CODE(S): S91.302A - Unspecified open wound, left foot, initial encounter PLAN: Resolved continue paring down callus on heel and applying AmLactin cream to soften. (4) Open wound of right great toe: CODE(S): S91.101A - Unspecified open wound of right great toe without damage to nail, initial encounter QUALIFIERS: Encounter type: initial encounter Qualified Code(s): S91.101A - Unspecified open wound of right great toe without damage to nail, initial encounter PLAN: Wash right great toe with antibacterial soap and water and apply the Aquacel extra to the wound base moistened with Dakin's cover with dry gauze Follow-up in 1 week these are daily dressings (5) Decubitus ulcer of toe, stage 3: CODE(S): L89.893 - Pressure ulcer of other site, stage 3 QUALIFIERS: Laterality: left Qualified Code(s): L89.893 - Pressure ulcer of other site, stage 3
--- NOTE | 2025-04-14 09:37 | WC ---
PHOTO-RIGHT GREAT TOE 04/13/25
[2025-04-20 09:51] VITALS: BP 147/85; RESP 16; TEMP 36.2
--- NOTE | 2025-04-20 12:02 | PCM.WC.PN ---
History of Present Illness Date of Service: 04/20/25 Chief Complaint: Follow-up of sacral wound from necrotizing fasciitis. History of Wound: This is a 65-year-old diabetic white male who apparently became extremely ill in October and his took him to the emergency room and he was diagnosed with necrotizing fasciitis of his rectal area. A large portion of the 4 inches deep and 2 to 3 inches wide was excised and everything is healed but on the outside there is still this nonhealing area. Very close to his rectum that is still open depth is very shallow but it is very still open. Patient is not a good diabetic and is not well-controlled we did discuss that that that is part of the problem he has to heal and he needs to get his sugars under control. He does have home health and they are doing wet-to-dry with Dakin's along with his she is helping a lot and doing the wound care and pretty much have closed it down except for this 1 area. He is on aspirin a day. We will obtain cultures today and start wound care. Progress of Wound: The sacrum is healed now are just healing the right great toe and it is improving. No sign of infection no increase in redness surrounding tissue looks flesh colored looks good measuring smaller shallow not as callus around the edge they are doing better about offloading and moisturizing his skin. The toes depth is filling in nicely it is more flat this week looks better. No sign of infection we will continue using the Fibracol. Subjective Subjective Patient is very pleased with outcomes Objective Data Objective Data Measurement of the toe is smaller and flatter looks good he just needs to continue offloading he has an appointment with Dr. Barkley on in another month for special shoe to offload on his toes. Vital Signs: Vital Signs Temp Pulse Resp BP O2 Del Method 97.2 F L 64 16 147/85 H Room Air 04/20/25 09:51 04/13/25 09:30 04/20/25 09:51 04/20/25 09:51 04/20/25 09:51 Oxygen Delivery Method Room Air Physical Exam Const oriented x3 General Appearance: cooperative Exam Limitations: no limitations HEENT normocephalic Nose: external nose normal External Ear: external ears normal Eyes General Eye: normal appearance of both eyes Neck full ROM General: normal visual inspection Resp normal respiratory effort Effort and Inspection: able to speak in complete sentences Auscultation: clear to auscultation bilaterally Cardio regular rate and regular rhythm Palpation: normal PMI Rate: regular rate Rhythm: regular rhythm GI Palpation: soft and no hepatosplenomegaly Back/Spine Cervical Spine: cervical ROM normal Thoracic Spine / Upper Back: normal to inspection Lumbar Spine / Lower Back: normal to inspection Extremity General Extremity: normal exam except as noted and other findings Other Details: Open fissure on the left heel and right great toe pad is open wound Skin Wounds: wounds noted Wound Narrative: Irregular shaped positive depth wound perirectal area of the sacrum Neuro oriented x3 Psych Appearance: grossly normal Speech: normal speech Thought Content: normal thought content Judgement: judgement good Debridement Note Debridement Note Wound debrided: Right great toe Laterality: Right Wound Grade/Stage: Stage 3 Type of Debridement: Excisional debridement Anesthesia Used: 5% Lidocaine Gel Depth: in the subcutaneous layer Percentage of wound debrided: 100 Instrument Used: 3mm curette Tissue Removed: Callus macerated tissue and fibrin Severity: Fat Layer Exposed Bleeding Controlled with: Compression and gauze Patient tolerated procedure: Patient tolerated procedure well Post-Debridement Measurements and Additional Note: Post-Debridement Measurements/Treatment - Nurse 1 - General Ulcer Assessment Start: 04/06/25 09:33 Freq: Status: Active Protocol: BRTITANY Activity Type Activity Date Activity User E-sign Co-sign Detail Recorded Client Recorded Date Recorded By Document 04/06/25 09:34 RB [id number] 04/06/25 09:36 RB Document 04/13/25 09:30 UT [id number] 04/13/25 09:36 UT Document 04/20/25 09:51 [facility] [id number] 04/20/25 09:57 BM 04/06/25 04/13/25 04/20/25 09:34 09:30 09:51 - Today's Visit Information Type of service Follow-up Visit Follow-up Visit Follow-up Visit (Physician/GAS APPLIANCE REPAIRER (Physician/GAS APPLIANCE REPAIRER (Physician/GAS APPLIANCE REPAIRER ) ) ) Arrival Mode Ambulatory Ambulatory Ambulatory Transfer Assistance Manual None Accompanied by Patient Identification Verified (Name & Yes Yes Yes ) Patient Requires Transmission-Based No No Precautions Safety Precautions Fall Prevention Vital Signs Temperature (97.8 F-99.1 F) 97.5 F L 98 F 97.2 F L Temperature Source Temporal Temporal Temporal Pulse Rate (60-100) 74 64 Pulse Location Monitor Monitor Monitor Respiratory Rate (12-18) 18 18 16 Respiratory rate source Observation Observation Observation Oxygen Delivery Method Room Air Room Air Blood Pressure (90/60-120/80) 144/83 H 137/89 H 147/85 H Blood Pressure Mean (mm Hg) 103 105 105 Source Monitor Monitor Monitor Position Semi-Fowlers Sitting Sitting Blood Pressure Location Left Arm Left Arm Left Arm History Since Last Visit- (Skip if this is Patient's initial visit) Have you changed medications since your No No last visit? Any new allergies or adverse reactions No No Had a fall/change in ADL's that may No No increase risk of falls Signs or symptoms of abuse and/or No No neglect since last visit Have you been in the hospital since your No No last visit? Has dressing in place as prescribed Yes Yes Yes Has compression in place as prescribed N/A Yes Has offloadiing in place as prescribed Yes Yes Yes Experienced any changes in pain level or No Yes management Left Footwear Regular Shoe Custom Shoe Right Footwear Regular Shoe Custom Shoe Pain Scale: 0-10 Numeric Is Patient Pain Free? Yes Yes Yes WC - Nurse 1 - General Ulcer Measurement Start: 04/06/25 09:33 Freq: Status: Active Protocol: Activity Type Activity Date Activity User E-sign Co-sign Detail Recorded Client Recorded Date Recorded By Document 04/06/25 09:34 RB [id number] 04/06/25 09:36 RB Document 04/13/25 09:30 MT [id number] 04/13/25 09:36 MT Document 04/20/25 09:51 [facility] [id number] 04/20/25 09:57 [facility] 04/06/25 04/13/25 04/20/25 09:34 09:30 09:51 Wound Center Nurse 1 #3- R GR TOE PLANTAR -Combined with other wound No No -Current Size (cm) - Length 1 0.9 0.9 -Current Size (cm) - Width 1 1.0 0.5 -Current Size (cm) - Depth 0.1 0.1 0.1 -Total Square Cm 1 0.90 0.45 -Date of Last Picture (Recall this 04/13/25 04/20/25 field) -Photo Taken Yes Yes Yes -Epithelialization Small 1-33% -Tunneling No No No -Undermining/Tunneling No No No -Circular Undermining No No No -Exudate Amt Medium Small Small -Exudate Type Serosanguineous Serosanguineous Serosanguineous -Wound Margin Fibrotic Scar, Flat & Intact Distinct, Thickened Scar Outline Attached -Granulation Amt Medium (34-66%) Large (67-100%) Large (67-100%) -Granulation Quality [place] Pale,[place] -Slough/Fibrin Yes No -Necrosis Amt Small (1-33%) Small (1-33%) None Present (0 %) -Necrotic Tissue Type Adherent Slough Adherent Slough -Structure Exposed N/A -Texture (Casandra-wound Skin Appearance) Assessed,Callus Assessed,Callus Assessed -Moisture (Casandra-wound Skin Appearance) Assessed Assessed Assessed -Color (Casandra-wound Skin Appearance) Assessed Assessed Assessed -Temperature (Casandra-wound Skin No Abnormality No Abnormality No Abnormality Appearance) (Pt Warm) (Pt Warm) (Pt Warm) -Tenderness on Palpation (Casandra-wound No No No Skin Appearance) -Ulcer Cleansing Wound Cleanser Soap and Water Rinsed/ Irrigated with Saline -Foul Odor after Cleansing No No No -Anesthetic Used 5% Lidocaine 5% Lidocaine 5% Lidocaine Gel Gel Gel Lower Limb Edema Present NA WC - Nurse 2 - General Ulcer CM Notes Start: 04/06/25 09:33 Freq: Status: Active Protocol: Activity Type Activity Date Activity User E-sign Co-sign Detail Recorded Client Recorded Date Recorded By Document 04/06/25 09:44 DS [id number] 04/06/25 09:47 DS Document 04/13/25 09:42 [facility] [id number] 04/13/25 09:51 [facility] Document 04/20/25 10:21 [facility] [id number] 04/20/25 10:25 [facility] 04/06/25 04/13/25 04/20/25 09:44 09:42 10:21 Wound Center Nurse 2 #3- R GR TOE PLANTAR -Time 09:44 09:42 10:22 -Correct Patient Yes Yes Yes -Correct Side, Site, Position Yes Yes Yes -Correct Procedure Yes Yes Yes -Procedure Performed Yes Yes Yes -Type of Procedure Debridement Debridement Debridement -Clinical Debridement Subcutaneous Subcutaneous Subcutaneous -Tissue Removed Subcutaneous Subcutaneous Subcutaneous -Post Debridement (cm) - Length 1.5 1 0.9 -Post Debridement (cm) - Width 1.3 1.2 0.7 -Post Debridement (cm) - Depth 0.2 0.2 0.1 -Total Square (Post) (cm) 1.95 1.2 0.63 -Area of Debridement (cm) - Length 1.5 1 0.9 -Area of Debridement (cm) - Width 1.3 1.2 0.7 -Total Square (Area) (cm) 1.95 1.2 0.63 -Tunneling No No No -Undermining/Tunneling No No No -Circular Undermining No No No -Wound/Ulcer Outcome Not Healed Not Healed Not Healed -Ulcer Cleansing Rinsed/ Rinsed/ Rinsed/ Irrigated with Irrigated with Irrigated with Saline Saline Saline -Foul Odor after Cleansing No No No -Bioengineered Tissue No No No -Bleeding Controlled with Pressure Pressure Pressure -Treatment Response Procedure Procedure Procedure Tolerated Well Tolerated Well Tolerated Well -Debridement - Subq, 1st 20sq cm Yes Yes Yes Pain Scale: 0-10 Numeric Is Patient Pain Free? Yes Yes Yes WC - Nurse 3 - General Ulcer D/C NN Start: 04/06/25 09:33 Freq: Status: Active Protocol: Activity Type Activity Date Activity User E-sign Co-sign Detail Recorded Client Recorded Date Recorded By Document 04/06/25 09:59 RB [id number] 04/06/25 10:00 RB Document 04/13/25 10:00 DL [id number] 04/13/25 10:01 DL Document 04/20/25 10:34 RB [id number] 04/20/25 10:35 RB 04/06/25 04/13/25 04/20/25 09:59 10:00 10:34 Wound Care Center Nurse 3 #3- R GR TOE PLANTAR -Ulcer Cleansing Rinsed/ Rinsed/ Rinsed/ Irrigated with Irrigated with Irrigated with Saline Saline Saline -Foul Odor after Cleansing No -Primary Dressing Applied Fibracol Plus Fibracol Plus 4x4 4x4 -Other Dressing fibracol Dakins HYDROGEL moistened with moistened dakins fibracol -Primary Dressing Covered/Secured with Dry Gauze & Dry Gauze, Dry Gauze, Roll Gauze, Secured with Secured with Secured with Tape Tape Tape -Fibracol Plus 4x4 1 1 Treatment Response Procedure Procedure Procedure Tolerated Well Tolerated Well Tolerated Well Pain Scale: 0-10 Numeric Is Patient Pain Free? Yes Yes Yes WC - Visit Discharge Discharge Condition Stable Stable Stable Ambulatory Status Ambulatory Ambulatory Ambulatory Transportation Private Auto Private Auto Private Auto Medication Reconcilliation completed & No No provided to patient/care provider Clinical Summary of Care Provided Yes Yes Assessment/Plan Assessment/Plan (1) Hyperglycemia due to type 2 diabetes mellitus: CODE(S): E11.65 - Type 2 diabetes mellitus with hyperglycemia QUALIFIERS: Diabetes mellitus alf insulin use: with superintendent container terminal use Qualified Code(s): E11.65 - Type 2 diabetes mellitus with hyperglycemia; Z79.4 - senior living (current) use of insulin (2) Nonhealing nonsurgical wound with fat layer exposed: CODE(S): T14.8XXA - Other injury of unspecified body region, initial encounter PLAN: Buttocks is healed patient is discharge from doing wound care for that (3) Non healing left heel wound: CODE(S): S91.302A - Unspecified open wound, left foot, initial encounter PLAN: Resolved continue paring down callus on heel and applying AmLactin cream to soften. (4) Open wound of right great toe: CODE(S): S91.101A - Unspecified open wound of right great toe without damage to nail, initial encounter QUALIFIERS: Encounter type: initial encounter Qualified Code(s): S91.101A - Unspecified open wound of right great toe without damage to nail, initial encounter PLAN: Wash right great toe with antibacterial soap and water and apply the Aquacel extra to the wound base moistened with Dakin's cover with dry gauze Follow-up in 1 week these are daily dressings (5) Decubitus ulcer of toe, stage 3: CODE(S): L89.893 - Pressure ulcer of other site, stage 3 QUALIFIERS: Laterality: left Qualified Code(s): L89.893 - Pressure ulcer of other site, stage 3
--- NOTE | 2025-04-21 08:40 | WC ---
PHOTO-RIGHT GREAT TOE 04/20/25
[2025-04-27 09:40] VITALS: BP 152/98; PULSE 70; RESP 16; TEMP 36.3
--- NOTE | 2025-04-27 12:27 | PN.PCM_ITS ---
History of Present Illness Date of Service: 04/27/25 Chief Complaint: Follow-up of sacral wound from necrotizing fasciitis. Right great toe open wound History of Wound: This is a 65-year-old diabetic white male who apparently became extremely ill in October and his took him to the emergency room and he was diagnosed with necrotizing fasciitis of his rectal area. A large portion of the 4 inches deep and 2 to 3 inches wide was excised and everything is healed but on the outside there is still this nonhealing area. Very close to his rectum that is still open depth is very shallow but it is very still open. Patient is not a good diabetic and is not well-controlled we did discuss that that that is part of the problem he has to heal and he needs to get his sugars under control. He does have home health and they are doing wet-to-dry with Dakin's along with his she is helping a lot and doing the wound care and pretty much have closed it down except for this 1 area. He is on aspirin a day. We will obtain cultures today and start wound care. The right great toe is from him walking barefoot in the house and basically shearing and he has a contracted great toe that actually is like a hammertoe that causes him to rub and open that area of the pad on his toe. Progress of Wound: The sacrum is healed now are just healing the right great toe and it is improving. No sign of infection no increase in redness surrounding tissue looks flesh colored looks good measuring smaller shallow not as callus around the edge they are doing better about offloading and moisturizing his skin. The toes depth is filling in nicely it continues to be more flat this week looks better. No sign of infection we will continue using the Fibracol. Subjective Subjective Patient is very pleased with outcomes anxious to ring the betancourt Objective Data Objective Data Right great toe is healing nicely almost done probably another week or 2 he will be ready to ring the betancourt. Patient did see Dr. Barkley on and he did cut out part of his innersole for offloading and he stated he would like to do surgery on the great toe to straighten. Vital Signs: Vital Signs Temp Pulse Resp BP O2 Del Method 97.3 F L 70 16 152/98 H Room Air 04/27/25 09:40 04/27/25 09:40 04/27/25 09:40 04/27/25 09:40 04/20/25 09:51 Oxygen Delivery Method Room Air Physical Exam Const oriented x3 General Appearance: cooperative Exam Limitations: no limitations HEENT normocephalic Nose: external nose normal External Ear: external ears normal Eyes General Eye: normal appearance of both eyes Neck full ROM General: normal visual inspection Resp normal respiratory effort Effort and Inspection: able to speak in complete sentences Auscultation: clear to auscultation bilaterally Cardio regular rate and regular rhythm Palpation: normal PMI Rate: regular rate Rhythm: regular rhythm GI Palpation: soft and no hepatosplenomegaly Back/Spine Cervical Spine: cervical ROM normal Thoracic Spine / Upper Back: normal to inspection Lumbar Spine / Lower Back: normal to inspection Extremity General Extremity: normal exam except as noted and other findings Other Details: Open fissure on the left heel and right great toe pad is open wound Skin Wounds: wounds noted Wound Narrative: Irregular shaped positive depth wound perirectal area of the sacrum Neuro oriented x3 Psych Appearance: grossly normal Speech: normal speech Thought Content: normal thought content Judgement: judgement good Debridement Note Debridement Note Wound debrided: Right great toe Laterality: Right Wound Grade/Stage: Stage 3 Type of Debridement: Excisional debridement Anesthesia Used: 5% Lidocaine Gel Depth: in the subcutaneous layer Percentage of wound debrided: 100 Instrument Used: 3mm curette Tissue Removed: Callus and fibrin Severity: Fat Layer Exposed Bleeding Controlled with: Compression and gauze Patient tolerated procedure: Patient tolerated procedure well Post-Debridement Measurements and Additional Note: Post-Debridement Measurements/Treatment - Nurse 1 - General Ulcer Assessment Start: 04/06/25 09:33 Freq: Status: Active Protocol: BRITTANY Activity Type Activity Date Activity User E-sign Co-sign Detail Recorded Client Recorded Date Recorded By Document 04/06/25 09:34 RB [id number] 04/06/25 09:36 RB Document 04/13/25 09:30 MT [id number] 04/13/25 09:36 MT Document 04/20/25 09:51 BMF [id number] 04/20/25 09:57 BMF Document 04/27/25 09:40 DL [id number] 04/27/25 09:45 DL 04/06/25 04/13/25 04/20/25 09:34 09:30 09:51 - Today's Visit Information Type of service Follow-up Visit Follow-up Visit Follow-up Visit (Physician/METAL CASKET MAKER (Physician/METAL CASKET MAKER (Physician/METAL CASKET MAKER ) ) ) Arrival Mode Ambulatory Ambulatory Ambulatory Transfer Assistance Manual None Accompanied by Patient Identification Verified (Name & Yes Yes Yes ) Patient Requires Transmission-Based No No Precautions Safety Precautions Fall Prevention Vital Signs Temperature (97.8 F-99.1 F) 97.5 F L 98 F 97.2 F L Temperature Source Temporal Temporal Temporal Pulse Rate (60-100) 74 64 Pulse Location Monitor Monitor Monitor Respiratory Rate (12-18) 18 18 16 Respiratory rate source Observation Observation Observation Oxygen Delivery Method Room Air Room Air Blood Pressure (90/60-120/80) 144/83 H 137/89 H 147/85 H Blood Pressure Mean (mm Hg) 103 105 105 Source Monitor Monitor Monitor Position Semi-Fowlers Sitting Sitting Blood Pressure Location Left Arm Left Arm Left Arm History Since Last Visit- (Skip if this is Patient's initial visit) Have you changed medications since your No No last visit? Any new allergies or adverse reactions No No Had a fall/change in ADL's that may No No increase risk of falls Signs or symptoms of abuse and/or No No neglect since last visit Have you been in the hospital since your No No last visit? Has dressing in place as prescribed Yes Yes Yes Has compression in place as prescribed N/A Yes Has offloadiing in place as prescribed Yes Yes Yes Experienced any changes in pain level or No Yes management Left Footwear Regular Shoe Custom Shoe Right Footwear Regular Shoe Custom Shoe Pain Scale: 0-10 Numeric Is Patient Pain Free? Yes Yes Yes 04/27/25 09:40 - Today's Visit Information Type of service Follow-up Visit (Physician/METAL CASKET MAKER ) Arrival Mode Ambulatory Transfer Assistance None Accompanied by Patient Identification Verified (Name & Yes ) Patient Requires Transmission-Based No Precautions Safety Precautions Vital Signs Temperature (97.8 F-99.1 F) 97.3 F L Temperature Source Temporal Pulse Rate (60-100) 70 Pulse Location Monitor Respiratory Rate (12-18) 16 Respiratory rate source Observation Oxygen Delivery Method Blood Pressure (90/60-120/80) 152/98 H Blood Pressure Mean (mm Hg) 116 Source Monitor Position Blood Pressure Location History Since Last Visit- (Skip if this is Patient's initial visit) Have you changed medications since your No last visit? Any new allergies or adverse reactions No Had a fall/change in ADL's that may No increase risk of falls Signs or symptoms of abuse and/or No neglect since last visit Have you been in the hospital since your No last visit? Has dressing in place as prescribed Yes Has compression in place as prescribed Yes Has offloadiing in place as prescribed Yes Experienced any changes in pain level or No management Left Footwear Right Footwear Pain Scale: 0-10 Numeric Is Patient Pain Free? Yes WC - Nurse 1 - General Ulcer Measurement Start: 04/06/25 09:33 Freq: Status: Active Protocol: Activity Type Activity Date Activity User E-sign Co-sign Detail Recorded Client Recorded Date Recorded By Document 04/06/25 09:34 RB [id number] 04/06/25 09:36 RB Document 04/13/25 09:30 MT [id number] 04/13/25 09:36 MT Document 04/20/25 09:51 BMF [id number] 04/20/25 09:57 BMF Document 04/27/25 09:40 DL [id number] 04/27/25 09:45 DL 04/06/25 04/13/25 04/20/25 09:34 09:30 09:51 Wound Center Nurse 1 #3- R GR TOE PLANTAR -Combined with other wound No No -Current Size (cm) - Length 1 0.9 0.9 -Current Size (cm) - Width 1 1.0 0.5 -Current Size (cm) - Depth 0.1 0.1 0.1 -Total Square Cm 1 0.90 0.45 -Date of Last Picture (Recall this 04/13/25 04/20/25 field) -Photo Taken Yes Yes Yes -Epithelialization Small 1-33% -Tunneling No No No -Undermining/Tunneling No No No -Circular Undermining No No No -Exudate Amt Medium Small Small -Exudate Type Serosanguineous Serosanguineous Serosanguineous -Wound Margin Fibrotic Scar, Flat & Intact Distinct, Thickened Scar Outline Attached -Granulation Amt Medium (34-66%) Large (67-100%) Large (67-100%) -Granulation Quality [place] Pale,[place] -Slough/Fibrin Yes No -Necrosis Amt Small (1-33%) Small (1-33%) None Present (0 %) -Necrotic Tissue Type Adherent Slough Adherent Slough -Structure Exposed N/A -Texture (Casandra-wound Skin Appearance) Assessed,Callus Assessed,Callus Assessed -Moisture (Casandra-wound Skin Appearance) Assessed Assessed Assessed -Color (Casandra-wound Skin Appearance) Assessed Assessed Assessed -Temperature (Casandra-wound Skin No Abnormality No Abnormality No Abnormality Appearance) (Pt Warm) (Pt Warm) (Pt Warm) -Tenderness on Palpation (Casandra-wound No No No Skin Appearance) -Ulcer Cleansing Wound Cleanser Soap and Water Rinsed/ Irrigated with Saline -Foul Odor after Cleansing No No No -Anesthetic Used 5% Lidocaine 5% Lidocaine 5% Lidocaine Gel Gel Gel Lower Limb Edema Present NA 04/27/25 09:40 Wound Center Nurse 1 #3- R GR TOE PLANTAR -Combined with other wound -Current Size (cm) - Length 0.7 -Current Size (cm) - Width 0.5 -Current Size (cm) - Depth 0.1 -Total Square Cm 0.35 -Date of Last Picture (Recall this field) -Photo Taken -Epithelialization -Tunneling -Undermining/Tunneling -Circular Undermining -Exudate Amt None Present -Exudate Type -Wound Margin Thickened -Granulation Amt Medium (34-66%) -Granulation Quality [place] -Slough/Fibrin -Necrosis Amt None Present (0 %) -Necrotic Tissue Type -Structure Exposed N/A -Texture (Casandra-wound Skin Appearance) Callus -Moisture (Casandra-wound Skin Appearance) No Abnormality -Color (Casandra-wound Skin Appearance) No Abnormality -Temperature (Casandra-wound Skin No Abnormality Appearance) (Pt Warm) -Tenderness on Palpation (Casandra-wound No Skin Appearance) -Ulcer Cleansing Rinsed/ Irrigated with Saline -Foul Odor after Cleansing No -Anesthetic Used 5% Lidocaine Gel Lower Limb Edema Present WC - Nurse 2 - General Ulcer CM Notes Start: 04/06/25 09:33 Freq: Status: Active Protocol: Activity Type Activity Date Activity User E-sign Co-sign Detail Recorded Client Recorded Date Recorded By Document 04/06/25 09:44 DS [id number] 04/06/25 09:47 DS Document 04/13/25 09:42 BMF [id number] 04/13/25 09:51 BMF Document 04/20/25 10:21 BMF [id number] 04/20/25 10:25 BMF Document 04/27/25 09:49 [facility] [id number] 04/27/25 09:55 BMF 04/06/25 04/13/25 04/20/25 09:44 09:42 10:21 Wound Center Nurse 2 #3- R GR TOE PLANTAR -Time 09:44 09:42 10:22 -Correct Patient Yes Yes Yes -Correct Side, Site, Position Yes Yes Yes -Correct Procedure Yes Yes Yes -Procedure Performed Yes Yes Yes -Type of Procedure Debridement Debridement Debridement -Clinical Debridement Subcutaneous Subcutaneous Subcutaneous -Tissue Removed Subcutaneous Subcutaneous Subcutaneous -Post Debridement (cm) - Length 1.5 1 0.9 -Post Debridement (cm) - Width 1.3 1.2 0.7 -Post Debridement (cm) - Depth 0.2 0.2 0.1 -Total Square (Post) (cm) 1.95 1.2 0.63 -Area of Debridement (cm) - Length 1.5 1 0.9 -Area of Debridement (cm) - Width 1.3 1.2 0.7 -Total Square (Area) (cm) 1.95 1.2 0.63 -Tunneling No No No -Undermining/Tunneling No No No -Circular Undermining No No No -Wound/Ulcer Outcome Not Healed Not Healed Not Healed -Ulcer Cleansing Rinsed/ Rinsed/ Rinsed/ Irrigated with Irrigated with Irrigated with Saline Saline Saline -Foul Odor after Cleansing No No No -Bioengineered Tissue No No No -Bleeding Controlled with Pressure Pressure Pressure -Treatment Response Procedure Procedure Procedure Tolerated Well Tolerated Well Tolerated Well -Offloading -Type of Offloading -Other Type of Offloading -Debridement - Subq, 1st 20sq cm Yes Yes Yes Pain Scale: 0-10 Numeric Is Patient Pain Free? Yes Yes Yes 04/27/25 09:49 Wound Center Nurse 2 #3- R GR TOE PLANTAR -Time 09:50 -Correct Patient Yes -Correct Side, Site, Position Yes -Correct Procedure Yes -Procedure Performed Yes -Type of Procedure Debridement -Clinical Debridement Subcutaneous -Tissue Removed Subcutaneous -Post Debridement (cm) - Length 0.8 -Post Debridement (cm) - Width 0.4 -Post Debridement (cm) - Depth 0.1 -Total Square (Post) (cm) 0.32 -Area of Debridement (cm) - Length 0.8 -Area of Debridement (cm) - Width 0.4 -Total Square (Area) (cm) 0.32 -Tunneling No -Undermining/Tunneling No -Circular Undermining No -Wound/Ulcer Outcome Not Healed -Ulcer Cleansing Rinsed/ Irrigated with Saline -Foul Odor after Cleansing No -Bioengineered Tissue No -Bleeding Controlled with Pressure -Treatment Response Procedure Tolerated Well -Offloading Yes -Type of Offloading Other -Other Type of Offloading OFFLOADING PER DR MARTINEZ, SHOES W/ INSERT ; POSSIBLE SURGERY -Debridement - Subq, 1st 20sq cm Yes Pain Scale: 0-10 Numeric Is Patient Pain Free? Yes - Nurse 3 - General Ulcer D/C NN Start: 04/06/25 09:33 Freq: Status: Active Protocol: Activity Type Activity Date Activity User E-sign Co-sign Detail Recorded Client Recorded Date Recorded By Document 04/06/25 09:59 RB [id number] 04/06/25 10:00 RB Document 04/13/25 10:00 DL [id number] 04/13/25 10:01 DL Document 04/20/25 10:34 RB [id number] 04/20/25 10:35 RB Document 04/27/25 10:09 DL [id number] 04/27/25 10:10 DL 04/06/25 04/13/25 04/20/25 09:59 10:00 10:34 Wound Care Center Nurse 3 #3- R GR TOE PLANTAR -Ulcer Cleansing Rinsed/ Rinsed/ Rinsed/ Irrigated with Irrigated with Irrigated with Saline Saline Saline -Foul Odor after Cleansing No -Primary Dressing Applied Fibracol Plus Fibracol Plus 4x4 4x4 -Other Dressing fibracol Dakins HYDROGEL moistened with moistened dakins fibracol -Primary Dressing Covered/Secured with Dry Gauze & Dry Gauze, Dry Gauze, Roll Gauze, Secured with Secured with Secured with Tape Tape Tape -Fibracol Plus 4x4 1 1 -Wound Comment(s) Treatment Response Procedure Procedure Procedure Tolerated Well Tolerated Well Tolerated Well Pain Scale: 0-10 Numeric Is Patient Pain Free? Yes Yes Yes WC - Visit Discharge Discharge Condition Stable Stable Stable Ambulatory Status Ambulatory Ambulatory Ambulatory Transportation Private Auto Private Auto Private Auto Medication Reconcilliation completed & No No provided to patient/care provider Clinical Summary of Care Provided Yes Yes Facility Type Orders Sent 04/27/25 10:09 Wound Care Center Nurse 3 #3- R GR TOE PLANTAR -Ulcer Cleansing Rinsed/ Irrigated with Saline -Foul Odor after Cleansing No -Primary Dressing Applied -Other Dressing HYDROGEL today -Primary Dressing Covered/Secured with Dry Gauze, Secured with Tape -Fibracol Plus 4x4 -Wound Comment(s) Pt to resume Fibracol and dakins at home tomorrow. Treatment Response Procedure Tolerated Well Pain Scale: 0-10 Numeric Is Patient Pain Free? Yes WC - Visit Discharge Discharge Condition Stable Ambulatory Status Ambulatory Transportation Private Auto Medication Reconcilliation completed & provided to patient/care provider Clinical Summary of Care Provided Facility Type Home Health Orders Sent Yes Assessment/Plan Assessment/Plan (1) Hyperglycemia due to type 2 diabetes mellitus: CODE(S): E11.65 - Type 2 diabetes mellitus with hyperglycemia QUALIFIERS: Diabetes mellitus local intermodal truck driver insulin use: with local intermodal truck driver use Qualified Code(s): E11.65 - Type 2 diabetes mellitus with hyperglycemia; Z79.4 - halfway (current) use of insulin (2) Nonhealing nonsurgical wound with fat layer exposed: CODE(S): T14.8XXA - Other injury of unspecified body region, initial encounter PLAN: Buttocks is healed patient is discharge from doing wound care for that (3) Non healing left heel wound: CODE(S): S91.302A - Unspecified open wound, left foot, initial encounter PLAN: Resolved continue paring down callus on heel and applying AmLactin cream to soften. (4) Open wound of right great toe: CODE(S): S91.101A - Unspecified open wound of right great toe without d amage to nail, initial encounter QUALIFIERS: Encounter type: initial encounter Qualified Code(s): S91.101A - Unspecified open wound of right great toe without damage to nail, initial encounter PLAN: Wash right great toe with antibacterial soap and water and apply the Aquacel extra to the wound base moistened with Dakin's cover with dry gauze Follow-up in 1 week these are daily dressings (5) Decubitus ulcer of toe, stage 3: CODE(S): L89.893 - Pressure ulcer of other site, stage 3 QUALIFIERS: Laterality: left Qualified Code(s): L89.893 - Pressure ulcer of other site, stage 3
== END 2025-05-01 23:59 | disposition home or self-care (01) ==
LOC: WC 09:45
PROVIDERS: PCP Family Medicine; Referring Provider Family Medicine; Visit Provider Nurse Practitioner
DX: L89.893 Pressure ulcer of other site, stage 3 (principal); E11.42 Type 2 diabetes mellitus with diabetic polyneuropathy; Z79.4 Long term (current) use of insulin; E11.65 Type 2 diabetes mellitus with hyperglycemia; L84 Corns and callosities; Z79.84 Long term (current) use of oral hypoglycemic drugs; Z79.899 Other long term (current) drug therapy; Z86.73 Personal history of transient ischemic attack (TIA), and cerebral infarction without residual deficits
CPT/HCPCS: 11042

== ENCOUNTER 2025-05-11 09:15 | Outpatient (RCR) | payer MEDICARE, OTHER, SELFPAY ==
[2025-05-04 09:17] VITALS: BP 159/81; PULSE 68; RESP 16; TEMP 36.2
--- NOTE | 2025-05-04 12:13 | PN.PCM_ITS ---
History of Present Illness Date of Service: 05/04/25 Chief Complaint: Follow-up of sacral wound from necrotizing fasciitis. Right great toe open wound History of Wound: This is a 65-year-old diabetic white male who apparently became extremely ill in October and his took him to the emergency room and he was diagnosed with necrotizing fasciitis of his rectal area. A large portion of the 4 inches deep and 2 to 3 inches wide was excised and everything is healed but on the outside there is still this nonhealing area. Very close to his rectum that is still open depth is very shallow but it is very still open. Patient is not a good diabetic and is not well-controlled we did discuss that that that is part of the problem he has to heal and he needs to get his sugars under control. He does have home health and they are doing wet-to-dry with [employer] along with his she is helping a lot and doing the wound care and pretty much have closed it down except for this 1 area. He is on aspirin a day. We will obtain cultures today and start wound care. The right great toe is from him walking barefoot in the house and basically shearing and he has a contracted great toe that actually is like a hammertoe that causes him to rub and open that area of the pad on his toe. Progress of Wound: All the real reasons he was here are healed he is here for the right great toe now and it is almost healed it is flatter smaller about half the size it was last week really looking good. He Scott saw Dr. Barkley on and he ordered physical therapy to help lift his foot up he is billy see how that goes if he approves then he might order him a brace for that foot also. Will continue using the Fibracol soaked with [employer]in[employer] and apply with a gauze dressing. has been doing his dressing changes. States his blood sugars are coming down from 250 down to 195. Subjective Subjective Patient is excited that it is improving that he can ring the [place]ourt soon. Objective Data Objective Data No sign of infection he has a very small area that is open it is much flatter there is well approximation of the tissue to the wound with no indentations nice and flat. Vital Signs: Vital Signs Temp Pulse Resp BP O2 Del Method 97.2 F L 68 16 159/81 H Room Air 05/04/25 09:17 05/04/25 09:17 05/04/25 09:17 05/04/25 09:17 05/04/25 09:17 Oxygen Delivery Method Room Air Physical Exam Const oriented x3 General Appearance: cooperative Exam Limitations: no limitations HEENT normocephalic Nose: external nose normal External Ear: external ears normal Eyes General Eye: normal appearance of both eyes Neck full ROM General: normal visual inspection Resp normal respiratory effort Effort and Inspection: able to speak in complete sentences Auscultation: clear to auscultation bilaterally Cardio regular rate and regular rhythm Palpation: normal PMI Rate: regular rate Rhythm: regular rhythm GI Palpation: soft and no hepatosplenomegaly Back/Spine Cervical Spine: cervical ROM normal Thoracic Spine / Upper Back: normal to inspection Lumbar Spine / Lower Back: normal to inspection Extremity General Extremity: normal exam except as noted and other findings Other Details: Open fissure on the left heel and right great toe pad is open wound Skin Wounds: wounds noted Wound Narrative: Irregular shaped positive depth wound perirectal area of the sacrum Neuro oriented x3 Psych Appearance: grossly normal Speech: normal speech Thought Content: normal thought content Judgement: judgement good Debridement Note Debridement Note Wound debrided: Right great toe Laterality: Right Wound Grade/Stage: Stage 3 Type of Debridement: Excisional debridement Anesthesia Used: 5% Lidocaine Gel Depth: in the subcutaneous layer Percentage of wound debrided: 100 Instrument Used: 3mm curette Tissue Removed: Callus and fibrin Severity: Fat Layer Exposed Bleeding Controlled with: Compression and gauze Patient tolerated procedure: Patient tolerated procedure well Post-Debridement Measurements and Additional Note: Post-Debridement Measurements/Treatment - Nurse 1 - General Ulcer Assessment Start: 05/04/25 09:17 Freq: Status: Active Protocol: TIESHA.HOWIE Activity Type Activity Date Activity User E-sign Co-sign Detail Recorded Client Recorded Date Recorded By Document 05/04/25 09:17 [facility] [id number] 05/04/25 09:21 [facility] 05/04/25 09:17 - Today's Visit Information Type of service Follow-up Visit (Physician/TRIAGE CLINICIAN ) Arrival Mode Ambulatory Transfer Assistance None Accompanied by Patient Identification Verified (Name & Yes ) Patient Requires Transmission-Based No Precautions Vital Signs Temperature (97.8 F-99.1 F) 97.2 F L Temperature Source Temporal Pulse Rate (60-100) 68 Pulse Location Monitor Respiratory Rate (12-18) 16 Respiratory rate source Observation Oxygen Delivery Method Room Air Blood Pressure (90/60-120/80) 159/81 H Blood Pressure Mean (mm Hg) 107 Source Monitor Position Sitting Blood Pressure Location Left Arm History Since Last Visit- (Skip if this is Patient's initial visit) Have you changed medications since your No last visit? Any new allergies or adverse reactions No Had a fall/change in ADL's that may No increase risk of falls Signs or symptoms of abuse and/or No neglect since last visit Have you been in the hospital since your No last visit? Has dressing in place as prescribed Yes Has compression in place as prescribed N/A Has offloadiing in place as prescribed Yes Experienced any changes in pain level or No management Left Footwear Regular Shoe Right Footwear Regular Shoe Other Footwear offloading per dr hansen w/ shoes. also starting pt for gait Pain Scale: 0-10 Numeric Is Patient Pain Free? Yes WC - Nurse 1 - General Ulcer Measurement Start: 05/04/25 09:17 Freq: Status: Active Protocol: Activity Type Activity Date Activity User E-sign Co-sign Detail Recorded Client Recorded Date Recorded By Document 05/04/25 09:17 [facility] [id number] 05/04/25 09:21 [facility] 05/04/25 09:17 Wound Center Nurse 1 #3- R GR TOE PLANTAR -Combined with other wound No -Current Size (cm) - Length 0.4 -Current Size (cm) - Width 0.2 -Current Size (cm) - Depth 0.1 -Total Square Cm 0.08 -Date of Last Picture (Recall this 05/04/25 field) -Photo Taken Yes -Epithelialization Medium 34-66% -Tunneling No -Undermining/Tunneling No -Circular Undermining No -Exudate Amt Small -Exudate Type Serosanguineous -Wound Margin Flat & Intact -Granulation Amt Large (67-100%) -Granulation Quality Red -Slough/Fibrin Yes -Necrosis Amt None Present (0 %) -Necrotic Tissue Type Adherent Slough -Texture (Casandra-wound Skin Appearance) Assessed -Moisture (Casandra-wound Skin Appearance) Assessed -Color (Casandra-wound Skin Appearance) Assessed -Temperature (Casandra-wound Skin No Abnormality Appearance) (Pt Warm) -Tenderness on Palpation (Casandra-wound No Skin Appearance) -Ulcer Cleansing Rinsed/ Irrigated with Saline -Foul Odor after Cleansing No -Anesthetic Used 5% Lidocaine Gel - Nurse 2 - General Ulcer CM Notes Start: 05/04/25 09:17 Freq: Status: Active Protocol: Activity Type Activity Date Activity User E-sign Co-sign Detail Recorded Client Recorded Date Recorded By Document 05/04/25 09:22 [facility] [id number] 05/04/25 09:31 [facility] 05/04/25 09:22 Wound Center Nurse 2 -Time 09:22 -Correct Patient Yes -Correct Side, Site, Position Yes -Correct Procedure Yes -Procedure Performed Yes -Type of Procedure Debridement -Clinical Debridement Subcutaneous -Tissue Removed Subcutaneous -Post Debridement (cm) - Length 0.5 -Post Debridement (cm) - Width 0.3 -Post Debridement (cm) - Depth 0.1 -Total Square (Post) (cm) 0.15 -Area of Debridement (cm) - Length 0.5 -Area of Debridement (cm) - Width 0.3 -Total Square (Area) (cm) 0.15 -Tunneling No -Undermining/Tunneling No -Circular Undermining No -Wound/Ulcer Outcome Not Healed -Ulcer Cleansing Rinsed/ Irrigated with Saline -Foul Odor after Cleansing No -Bioengineered Tissue No -Bleeding Controlled with Pressure -Treatment Response Procedure Tolerated Well -Debridement - Subq, 1st 20sq cm Yes Pain Scale: 0-10 Numeric Is Patient Pain Free? Yes - Nurse 3 - General Ulcer D/C NN Start: 05/04/25 09:17 Freq: Status: Active Protocol: Activity Type Activity Date Activity User E-sign Co-sign Detail Recorded Client Recorded Date Recorded By Document 05/04/25 09:41 [id number] 05/04/25 09:42 DL 05/04/25 09:41 Wound Care Center Nurse 3 #3- R GR TOE PLANTAR -Ulcer Cleansing Rinsed/ Irrigated with Saline -Foul Odor after Cleansing No -Other Dressing hydrogel today -Primary Dressing Covered/Secured with Dry Gauze, Secured with Tape Treatment Response Procedure Tolerated Well Pain Scale: 0-10 Numeric Is Patient Pain Free? Yes - Visit Discharge Discharge Condition Stable Ambulatory Status Ambulatory Transportation Private Auto Assessment/Plan Assessment/Plan (1) Hyperglycemia due to type 2 diabetes mellitus: CODE(S): E11.65 - Type 2 diabetes mellitus with hyperglycemia QUALIFIERS: Diabetes mellitus intermediate insulin use: with terminal superintendent use Qualified Code(s): E11.65 - Type 2 diabetes mellitus with hyperglycemia; Z79.4 - ad terminal makeup operator (current) use of insulin (2) Nonhealing nonsurgical wound with fat layer exposed: CODE(S): T14.8XXA - Other injury of unspecified body region, initial encounter PLAN: Buttocks is healed patient is discharge from doing wound care for that (3) Non healing left heel wound: CODE(S): S91.302A - Unspecified open wound, left foot, initial encounter PLAN: Resolved continue paring down callus on heel and applying AmLactin cream to soften. (4) Open wound of right great toe: CODE(S): S91.101A - Unspecified open wound of right great toe without damage to nail, initial encounter QUALIFIERS: Encounter type: initial encounter Qualified Code(s): S91.101A - Unspecified open wound of right great toe without damage to nail, initial encounter PLAN: Wash right great toe with antibacterial soap and water and apply the Aquacel extra to the wound base moistened with [employer] cover with dry gauze Follow-up in 1 week these are daily dressings (5) Decubitus ulcer of toe, stage 3: CODE(S): L89.893 - Pressure ulcer of other site, stage 3 QUALIFIERS: Laterality: left Qualified Code(s): L89.893 - Pressure ulcer of other site, stage 3
--- NOTE | 2025-05-05 09:30 | WC ---
PHOTO- RIGHT GREAT TOE 05/04/25
[2025-05-11 09:17] VITALS: BP 146/84; PULSE 75; RESP 18; TEMP 36.1
--- NOTE | 2025-05-11 11:06 | PCM.WC.PN ---
History of Present Illness Date of Service: 05/11/25 Chief Complaint: Follow-up of sacral wound from necrotizing fasciitis. Right great toe open wound History of Wound: This is a 65-year-old diabetic white male who apparently became extremely ill in October and his took him to the emergency room and he was diagnosed with necrotizing fasciitis of his rectal area. A large portion of the 4 inches deep and 2 to 3 inches wide was excised and everything is healed but on the outside there is still this nonhealing area. Very close to his rectum that is still open depth is very shallow but it is very still open. Patient is not a good diabetic and is not well-controlled we did discuss that that that is part of the problem he has to heal and he needs to get his sugars under control. He does have home health and they are doing wet-to-dry with [employer] along with his she is helping a lot and doing the wound care and pretty much have closed it down except for this 1 area. He is on aspirin a day. We will obtain cultures today and start wound care. The right great toe is from him walking barefoot in the house and basically shearing and he has a contracted great toe that actually is like a hammertoe that causes him to rub and open that area of the pad on his toe. Progress of Wound: All is healed patient be discharged from the wound center Subjective Subjective Patient is overjoyed that everything is healed and healed really well. He starts therapy for his foot tomorrow Objective Data Objective Data All we wounds buttocks and toe are all healed patient is discharged from the wound center Vital Signs: Vital Signs Temp Pulse Resp BP O2 Del Method 96.9 F L 75 18 146/84 H Room Air 05/11/25 09:17 05/11/25 09:17 05/11/25 09:17 05/11/25 09:17 05/11/25 09:17 Oxygen Delivery Method Room Air Physical Exam Const oriented x3 General Appearance: cooperative Exam Limitations: no limitations HEENT normocephalic Nose: external nose normal External Ear: external ears normal Eyes General Eye: normal appearance of both eyes Neck full ROM General: normal visual inspection Resp normal respiratory effort Effort and Inspection: able to speak in complete sentences Auscultation: clear to auscultation bilaterally Cardio regular rate and regular rhythm Palpation: normal PMI Rate: regular rate Rhythm: regular rhythm GI Palpation: soft and no hepatosplenomegaly Back/Spine Cervical Spine: cervical ROM normal Thoracic Spine / Upper Back: normal to inspection Lumbar Spine / Lower Back: normal to inspection Extremity General Extremity: normal exam except as noted and other findings Other Details: Open fissure on the left heel and right great toe pad is open wound Skin Wounds: wounds noted Wound Narrative: Irregular shaped positive depth wound perirectal area of the sacrum Neuro oriented x3 Psych Appearance: grossly normal Speech: normal speech Thought Content: normal thought content Judgement: judgement good Debridement Note Debridement Note No debridement was completed: No debridement was completed today Post-Debridement Measurements and Additional Note: Post-Debridement Measurements/Treatment - Nurse 1 - General Ulcer Assessment Start: 05/04/25 09:17 Freq: Status: Active Protocol: BRITTANY Activity Type Activity Date Activity User E-sign Co-sign Detail Recorded Client Recorded Date Recorded By Document 05/04/25 09:17 [facility] [id number] 05/04/25 09:21 [facility] Document 05/11/25 09:17 [id number] 05/11/25 09:23 05/04/25 05/11/25 09:17 09:17 - Today's Visit Information Type of service Follow-up Visit Follow-up Visit (Physician/NUTRITION EDUCATOR (Physician/NUTRITION EDUCATOR ) ) Arrival Mode Ambulatory Ambulatory Transfer Assistance None Accompanied by Patient Identification Verified (Name & Yes Yes ) Patient Requires Transmission-Based No Precautions Vital Signs Temperature (97.8 F-99.1 F) 97.2 F L 96.9 F L Temperature Source Temporal Temporal Pulse Rate (60-100) 68 75 Pulse Location Monitor Monitor Respiratory Rate (12-18) 16 18 Respiratory rate source Observation Observation Oxygen Delivery Method Room Air Room Air Blood Pressure (90/60-120/80) 159/81 H 146/84 H Blood Pressure Mean (mm Hg) 107 104 Source Monitor Monitor Position Sitting Sitting Blood Pressure Location Left Arm Right Arm History Since Last Visit- (Skip if this is Patient's initial visit) Have you changed medications since your No No last visit? Any new allergies or adverse reactions No No Had a fall/change in ADL's that may No No increase risk of falls Signs or symptoms of abuse and/or No No neglect since last visit Have you been in the hospital since your No No last visit? Has dressing in place as prescribed Yes Yes Has compression in place as prescribed N/A N/A Has offloadiing in place as prescribed Yes N/A Experienced any changes in pain level or No No management Left Footwear Regular Shoe Regular Shoe Right Footwear Regular Shoe Regular Shoe Other Footwear offloading per dr hansen w/ shoes. also starting pt for gait Pain Scale: 0-10 Numeric Is Patient Pain Free? Yes Yes TIESHA - Nurse 1 - General Ulcer Measurement Start: 05/04/25 09:17 Freq: Status: Active Protocol: Activity Type Activity Date Activity User E-sign Co-sign Detail Recorded Client Recorded Date Recorded By Document 05/04/25 09:17 BM [id number] 05/04/25 09:21 [facility] Document 05/11/25 09:17 KW [id number] 05/11/25 09:23 KW 05/04/25 05/11/25 09:17 09:17 Wound Center Nurse 1 #3- R GR TOE PLANTAR -Combined with other wound No -Current Size (cm) - Length 0.4 0.1 -Current Size (cm) - Width 0.2 0.1 -Current Size (cm) - Depth 0.1 0 -Total Square Cm 0.08 0.01 -Date of Last Picture (Recall this 05/04/25 05/11/25 field) -Photo Taken Yes -Epithelialization Medium 34-66% -Tunneling No -Undermining/Tunneling No -Circular Undermining No -Exudate Amt Small None Present -Exudate Type Serosanguineous -Wound Margin Flat & Intact -Granulation Amt Large (67-100%) -Granulation Quality Red -Slough/Fibrin Yes -Necrosis Amt None Present (0 %) -Necrotic Tissue Type Adherent Slough -Texture (Casandra-wound Skin Appearance) Assessed Assessed -Moisture (Casandra-wound Skin Appearance) Assessed Assessed -Color (Casandra-wound Skin Appearance) Assessed Assessed -Temperature (Casandra-wound Skin No Abnormality No Abnormality Appearance) (Pt Warm) (Pt Warm) -Tenderness on Palpation (Casandra-wound No No Skin Appearance) -Ulcer Cleansing Rinsed/ Rinsed/ Irrigated with Irrigated with Saline Saline -Foul Odor after Cleansing No No -Anesthetic Used 5% Lidocaine 5% Lidocaine Gel Gel WC - Nurse 2 - General Ulcer CM Notes Start: 05/04/25 09:17 Freq: Status: Active Protocol: Activity Type Activity Date Activity User E-sign Co-sign Detail Recorded Client Recorded Date Recorded By Document 05/04/25 09:22 [facility] [id number] 05/04/25 09:31 BM Document 05/11/25 09:34 [facility] [id number] 05/11/25 09:36 [facility] 05/04/25 05/11/25 09:22 09:34 Wound Center Nurse 2 #3- R GR TOE PLANTAR -Time 09: 09:35 -Correct Patient Yes -Correct Side, Site, Position Yes -Correct Procedure Yes -Procedure Performed Yes No -Type of Procedure Debridement -Clinical Debridement Subcutaneous -Tissue Removed Subcutaneous -Post Debridement (cm) - Length 0.5 0 -Post Debridement (cm) - Width 0.3 0 -Post Debridement (cm) - Depth 0.1 0 -Total Square (Post) (cm) 0.15 0 -Area of Debridement (cm) - Length 0.5 0 -Area of Debridement (cm) - Width 0.3 0 -Total Square (Area) (cm) 0.15 0 -Tunneling No -Undermining/Tunneling No -Circular Undermining No -Wound/Ulcer Outcome Not Healed Healed- Epithelialized -Ulcer Cleansing Rinsed/ Irrigated with Saline -Foul Odor after Cleansing No -Bioengineered Tissue No -Bleeding Controlled with Pressure NA -Treatment Response Procedure Tolerated Well -Debridement - Subq, 1st 20sq cm Yes Pain Scale: 0-10 Numeric Is Patient Pain Free? Yes Yes TIESHA - Nurse 3 - General Ulcer D/C NN Start: 05/04/25 09:17 Freq: Status: Active Protocol: Activity Type Activity Date Activity User E-sign Co-sign Detail Recorded Client Recorded Date Recorded By Document 05/04/25 09:41 DL [id number] 05/04/25 09:42 DL Document 05/11/25 09:36 [facility] [id number] 05/11/25 09:36 [facility] 05/04/25 05/11/25 09:41 09:36 Wound Care Center Nurse 3 #3- R GR TOE PLANTAR -Ulcer Cleansing Rinsed/ Irrigated with Saline -Foul Odor after Cleansing No -Other Dressing hydrogel today -Primary Dressing Covered/Secured with Dry Gauze, Secured with Tape Treatment Response Procedure Tolerated Well Pain Scale: 0-10 Numeric Is Patient Pain Free? Yes Yes WC - Visit Discharge Discharge Condition Stable Stable Ambulatory Status Ambulatory Ambulatory Transportation Private Auto Private Auto Accompanied by Notes: healed Assessment/Plan Assessment/Plan (1) Hyperglycemia due to type 2 diabetes mellitus: CODE(S): E11.65 - Type 2 diabetes mellitus with hyperglycemia QUALIFIERS: Diabetes mellitus [facility] insulin use: with [facility] use Qualified Code(s): E11.65 - Type 2 diabetes mellitus with hyperglycemia; Z79.4 - joint terminal attack controller (current) use of insulin (2) Nonhealing nonsurgical wound with fat layer exposed: CODE(S): T14.8XXA - Other injury of unspecified body region, initial encounter PLAN: Buttocks is healed patient is discharge from doing wound care for that (3) Non healing left heel wound: CODE(S): S91.302A - Unspecified open wound, left foot, initial encounter PLAN: Resolved continue paring down callus on heel and applying AmLactin cream to soften. (4) Open wound of right great toe: CODE(S): S91.101A - Unspecified open wound of right great toe without damage to nail, initial encounter QUALIFIERS: Encounter type: initial encounter Qualified Code(s): S91.101A - Unspecified open wound of right great toe without damage to nail, initial encounter PLAN: Discharge from the wound center follow-up as needed. Continue physical therapy for the foot and toe (5) Decubitus ulcer of toe, stage 3: CODE(S): L89.893 - Pressure ulcer of other site, stage 3 QUALIFIERS: Laterality: left Qualified Code(s): L89.893 - Pressure ulcer of other site, stage 3
--- NOTE | 2025-05-11 12:48 | WC ---
PHOTO-RIGHT GREAT TOE 05/11/25
== END 2025-05-31 15:48 | disposition home or self-care (01) ==
LOC: WC 09:15
PROVIDERS: PCP Family Medicine; Referring Provider Family Medicine; Visit Provider Nurse Practitioner
DX: L89.893 Pressure ulcer of other site, stage 3 (principal); M72.6 Necrotizing fasciitis; E11.65 Type 2 diabetes mellitus with hyperglycemia; T14.8XXA Other injury of unspecified body region, initial encounter
CPT/HCPCS: 11042; 99212; G0463